=== PATIENT | male | born 1935 | race Caucasian/White ===

== ENCOUNTER → 2019-02-13 | Outpatient (CLI) | payer OTHER ==
[2015-11-03 11:00] VITALS: BP 141/68
[~2019-02-13] MED LIST: ACET325T9 PO; ALLO300T PO; AMLO10TA8 PO; AMOX1TAB58 PO; ASPI325T11 PO; CARV3.12 PO; CLOP75TA PO; DOCU-109 PO; FURO-69 PO; GLIP5TAB10 PO; HYDR-2761 PO; INSU100C4 SQ; INSU100I17 SQ; INSU100I27 SQ; INSU100V13 SQ; LIDO700A4 TP; LISI-130 PO; LOSA-73 PO; MAGN2400 PO; METO50TA6 PO; NIAC1000 PO; OXYC1TAB15 PO; PANT40TA5 PO; PREG150C PO; SIMV20TA PO; SUCR1ORA11 PO; TIZA2CAP3 PO
--- NOTE | 2019-02-13 14:35 | RAD ---
MRI of the lumbar spine without contrast 02/13/2019 CLINICAL HISTORY: Chronic weakness with bilateral leg pain, left greater than right. TECHNIQUE: Unenhanced T1-weighted and T2-weighted sagittal and axial recovery sagittal images of the lumbar spine were obtained. FINDINGS: Minimal S-shaped curvature of the thoracolumbar spine is seen. Degenerative signal changes and loss of height are seen involving all of the disks of the lumbar spine. Degenerative signal changes are seen within the marrow surrounding these discs. The conus medullaris is within normal limits in morphology, position, and signal characteristics. At the L1-2 disc space there is a minimal generalized disc bulge. Degenerative changes are seen involving the facet joints bilaterally. These findings do not result in significant central spinal canal or neural foraminal stenosis. At the L2-3 disc space there is a mild to moderate generalized disc bulge. Degenerative changes are seen involving the facet joints bilaterally. There are small facet joint effusions. There is moderate ligamentum flavum hypertrophy bilaterally. These findings when combined result in moderate central spinal canal stenosis. Mild bilateral neural foraminal stenosis is seen. At the L3-4 disc space there is a mild to moderate generalized disc bulge. The patient appears to be post left hemilaminotomy. The disc bulge is eccentric to the right. Degenerative changes are seen involving the facet joints bilaterally. There is mild to moderate right ligamentum flavum hypertrophy. These findings when combined result in mild right greater than left central spinal canal stenosis. Mild to moderate right greater than left neural foraminal stenosis is seen. At the L4-5 disc space there is a mild to moderate generalized disc bulge. Degenerative changes are seen involving the facet joints bilaterally. There is moderate ligamentum flavum hypertrophy bilaterally. These findings when combined result in moderate central spinal canal stenosis. Mild bilateral neural foraminal stenosis is seen. At the L5-S1 disc space there is a mild to moderate generalized disc bulge. Superimposed on this disc bulge is a focal central disc protrusion. This measures 3 mm in AP diameter. Degenerative changes are seen involving the facet joints bilaterally. These findings when combined do not result in significant central spinal canal stenosis. Moderate left greater than right neural foraminal stenosis is seen. IMPRESSION: 1. The patient appears to be post left hemilaminotomy at L3-4. 2. The changes of degenerative disc disease are seen throughout the lumbar spine. These findings result in moderate central spinal canal stenosis at L2-3 and L4-5 and mild right greater than left central spinal canal stenosis at L3-4. Multilevel neural foraminal stenosis of varying severity is seen as outlined above. Electronically signed by: Jeff Patterson MD (02/13/2019 2:32 PM) [facility]
== END | disposition home or self-care (01) ==
LOC: MRI 14:07
PROVIDERS: ATTEND Internal Medicine
DX: M51.36 Other intervertebral disc degeneration, lumbar region (principal); M51.27 Other intervertebral disc displacement, lumbosacral region; M48.07 Spinal stenosis, lumbosacral region
CPT/HCPCS: 72148

== ENCOUNTER → 2019-02-27 | Outpatient (CLI) | payer OTHER ==
[2015-11-03 11:00] VITALS: BP 141/68
--- NOTE | 2019-02-27 12:25 | RAD ---
Bilateral large renal arterial duplex ultrasound study without comparison for absent pedal pulses. Technique and findings: Real-time grayscale and color and spectral Doppler evaluation of the arteries of the lower extremities is performed. On the right, there is moderate multifocal atherosclerosis involving common femoral and superficial femoral arterial distributions, with no areas of focal velocity elevation. Doppler waveforms are biphasic throughout, save for the dorsalis pedis artery which is monophasic. Overall, velocities are somewhat low, which is nonspecific but could be related to aortoiliac inflow disease. On the left, there is mild multifocal atherosclerosis involving the common femoral, deep femoral, and superficial femoral arterial distributions, once again with biphasic flow. More moderate atherosclerosis is seen in the popliteal artery which is also biphasic. Flow in the posterior tibial, anterior tibial, and dorsalis pedis arteries is monophasic, and the peroneal artery is not visualized. IMPRESSION: 1. Abnormal flow in the runoff vessels, particularly on the left, likely due to hemodynamic significant stenosis in these distributions. 2. No focal stenosis involving the common femoral, superficial femoral, or popliteal arteries of either lower extremity, however velocities are quite low, which could indicate aortoiliac inflow disease. This could be clarified with ABIs and segmental pressures or CTA. Electronically signed by: Saúl Saini MD (02/27/2019 12:23 PM) [id number]
== END | disposition home or self-care (01) ==
LOC: US 07:05
PROVIDERS: ATTEND Internal Medicine
DX: I70.293 Other atherosclerosis of native arteries of extremities, bilateral legs (principal); I10 Essential (primary) hypertension; I25.10 Atherosclerotic heart disease of native coronary artery without angina pectoris; E78.5 Hyperlipidemia, unspecified; E11.40 Type 2 diabetes mellitus with diabetic neuropathy, unspecified; Z90.49 Acquired absence of other specified parts of digestive tract; Z79.899 Other long term (current) drug therapy
CPT/HCPCS: 93925

== ENCOUNTER 2019-06-03 18:07 | Inpatient (IN) | payer OTHER ==
[~2019-06-03] VITALS: Ht 177.8 cm; Wt 93.7 kg
[~2019-06-03 18:07] MED LIST changes: -PANT40TA5 PO; +PANT40TA77 PO
[2019-06-03 18:31] LABS: BASO # 0.1 x10^3/uL (0.0-0.2); BASO % 1 % (0-3); EOS # 0.2 x10^3/uL (0.0-0.7); EOS % 3 % (0-3); HEMATOCRIT 43.4 % (39.0-53.0); HEMOGLOBIN 14.7 g/dL (13.0-17.5); LYMPH # 1.4 x10^3/uL (1.0-4.8); LYMPH % 19 % (24-48); MEAN CORPUSCULAR HEMOGLOBIN 34 pg (25-35); MEAN CORPUSCULAR HGB CONC 34 g/dL (31-37); MEAN CORPUSCULAR VOLUME 101 fL (79-100); MONO # 0.7 x10^3/uL (0.0-1.1); MONO % 9 % (0-9); NEUT # 5.2 x10^3/uL (1.8-7.7); NEUT % 69 % (31-73); PLATELET COUNT 203 x10^3/uL (140-400); RED BLOOD COUNT 4.32 x10^6/uL (4.30-5.70); RED CELL DISTRIBUTION WIDTH 14.6 % (11.5-14.5); WHITE BLOOD COUNT 7.6 x10^3/uL (4.0-11.0)
[2019-06-03 18:39] LABS: PROTHROMBIN TIME PATIENT 13.8 SEC (11.7-14.0)
--- NOTE | 2019-06-03 18:40 | RAD ---
CT brain without contrast. HISTORY: Slurred speech, dysarthria, stroke protocol CT scan of brain was done without contrast. There is no intracranial hemorrhage. There is no mass or shift of the midline. Lateral ventricles are normal in size. Sinuses are clear. There is mild decreased density in the white matter from chronic microvascular changes. There is mild decreased density at the anterior limb of the internal capsule on the left compared to the right which could be chronic white matter change or a small focal lacunar infarct MRI would be of benefit for further evaluation. FOR INTERNAL CODING PURPOSES Critical result: RESULT CODE: (C) PQRS Compliance Statement: One or more of the following individualized dose reduction techniques were utilized for this examination: 1. Automated exposure control 2. Adjustment of the mA and/or kV according to patient size 3. Use of iterative reconstruction technique IMPRESSION: 1. Atrophy and chronic white matter changes. 2. Possible lacunar infarct anterior limb internal capsule on the left. 3. No intracranial hemorrhage or other acute finding. Emergency room physician was called and notified of findings at 6:35 PM PQRS Compliance Statement: One or more of the following individualized dose reduction techniques were utilized for this examination: 1. Automated exposure control 2. Adjustment of the mA and/or kV according to patient size 3. Use of iterative reconstruction technique Electronically signed by: Araivnd Carrillo MD (06/03/2019 6:37 PM) [id number]
[2019-06-03 18:42] LABS: CALCIUM 9.1 mg/dL (8.5-10.1); GFR 71.2; POTASSIUM 3.9 mmol/L (3.5-5.1)
[2019-06-03 18:48] LABS: ALBUMIN/GLOBULIN RATIO 0.9 (1.0-1.7); MAGNESIUM 1.6 mg/dL (1.8-2.4); TOTAL BILIRUBIN 0.4 mg/dL (0.2-1.0); TOTAL PROTEIN 6.5 g/dL (6.4-8.2)
[2019-06-03] MEDS ORDERED: ASPIRIN CHEWABLE 81 MG TABLET. PO ONE (19:00)
[2019-06-03] MEDS ORDERED: IV NORMAL SALINE 1000ML BAG 1,000 ML IV ONE (19:15)
[2019-06-03] MEDS ORDERED: IOHEXOL 350 MG/ML 100 ML VIAL. IV ONE (19:30)
[2019-06-03] MEDS ORDERED: CONTRAST GIVEN. MC PRN (19:30)
[2019-06-03 20:00] LABS: BILIRUBIN,URINE NEGATIVE (NEG); CLARITY,URINE CLEAR; COLOR,URINE YELLOW; NITRITE,URINE POSITIVE (NEG); PH,URINE 6.5; PROTEIN,URINE 100 mg/dL (NEG-TRACE); UROBILINOGEN,URINE 0.2 mg/dL (0.2 mg/dL)
--- NOTE | 2019-06-03 20:10 | RAD ---
Exam: CTA head and neck INDICATION: Slurred speech, right-sided numbness TECHNIQUE: Sequential axial images through the head and neck obtained 75 mL of Omnipaque 350 IV contrast. Sagittal and coronal reformatted images were reconstructed from the axial data and reviewed. Comparisons: CT head 06/03/2019 FINDINGS: CTA NECK: Visualized portions of the thoracic aorta are patent with scattered areas of calcified and noncalcified atheromatous plaque. Right common carotid artery has mild noncalcified abscess chronic plaque in its distal portion without significant stenosis. Approximately 28 percent stenosis at the origin of the right internal carotid artery by NASCET criteria. Otherwise, the cervical segment of the right internal carotid artery is patent without evidence of stenosis, occlusion or aneurysm. Left common carotid artery is patent without evidence of stenosis, occlusion or aneurysm. Calcified and noncalcified atheromatous plaque at the origin of the left internal carotid artery without significant stenosis. The left internal carotid artery cervical segment is patent without evidence of stenosis, occlusion or aneurysm. The origin of the right vertebral artery is unremarkable. Right vertebral artery is dominant. There is dense calcified atherosclerotic plaque at the intradural segment of the right internal carotid artery causing likely mild stenosis. The right vertebral artery is patent to the basilar confluence. The left vertebral artery is diminutive. The left vertebral artery terminates as a cervical branch. Several subcentimeter hypoattenuating nodules are noted with the thyroid. Otherwise, the visualized soft tissues are unremarkable. CTA HEAD: Mild calcified atherosclerotic plaque at the cavernous segment of the right internal carotid artery without significant stenosis. Right MCA is patent. Right ANYA is patent. Mild calcified atherosclerotic plaque at the cavernous segment of the left internal carotid artery without significant stenosis. Left MCA is patent. Left ANYA is patent. Vertebral artery is patent without evidence of stenosis, occlusion or aneurysm. The dispatch associate are patent proximally. IMPRESSION: 1. No major branch vessel occlusion identified. 2. Calcified atherosclerotic plaque at the origin of the right internal carotid artery causing approximately 30 percent stenosis 3. Of the basilar artery is supplied solely by the right vertebral artery which demonstrates mild stenosis along its intradural segment. 4. Mild calcified abscess chronic plaque at the cavernous segments of the internal carotid arteries bilaterally without significant stenosis. Exposure: One or more of the following in the visualized dose reduction techniques were utilized for this examination: 1. Automated exposure control 2. Adjustment of the MA and/or KV according to patient size 3. Use of iterative of reconstructive technique Electronically signed by: Kishor Neil MD (06/03/2019 8:07 PM) [facility]
[2019-06-03 20:11] LABS: AMORPHOUS SEDIMENT,UR PRESENT /HPF; BACTERIA,URINE MANY /HPF (0-FEW); RBC,URINE 0 /HPF (0-2); SQUAMOUS EPITHELIAL CELL,UR OCC /LPF; WBC,URINE >40 /HPF (0-4)
--- NOTE | 2019-06-03 20:20 | PHYS DOC ---
Past Medical History Past Medical History: Diabetes-Type I, Heart Disease, Hypertension Additional Past Medical Histor: MELANOMA Past Surgical History: Colectomy, Other Additional Past Surgical Histo: Melanoma surgery, left shoulder Additional Information: Nonsmoker Alcohol Use: None Drug Use: None Adult General Chief Complaint Chief Complaint: NEURO SYMPTOMS/DEFICITS HPI HPI 84-year-old male presents with report of slurred speech and facial droop to right side which started at 1630. Patient reports associated numbness and tingling to right face and right arm which has since resolved. Denies known trauma. Denies neck pain. Denies fever or chills. Denies chest pain or shortness of breath. Denies history of blood thinner use. Review of Systems Review of Systems Constitutional: Denies fever or chills Eyes: Denies redness or eye pain HENT: Denies nasal congestion or sore throat Respiratory: Denies cough or shortness of breath Cardiovascular: Denies chest pain or palpitations GI: Denies abdominal pain, nausea, or vomiting : Denies dysuria or hematuria Musculoskeletal: Denies back pain or joint pain Integument: Denies rash or skin lesions Neurologic: Denies headache; reports right facial droop, slurred speech, and numbness to right face and right arm. Complete systems were reviewed and found to be within normal limits, except as documented in this note. Current Medications Current Medications Current Medications Medications (Trade) Dose Ordered Sig/Ya Start Time Stop Time Status Last Admin Dose Admin Aspirin (Children'S Aspirin) 162 mg 1X ONCE 06/03/19 19:00 06/03/19 19:01 DC 06/03/19 18:58 162 MG Info (CONTRAST GIVEN -- Rx MONITORING) 1 each PRN DAILY PRN 06/03/19 19:30 06/05/19 19:29 Iohexol (Omnipaque 350 Mg/ml) 75 ml 1X ONCE 06/03/19 19:30 06/03/19 19:31 DC 06/03/19 19:35 75 ML Sodium Chloride 1,000 ml @ 1,000 mls/hr 1X ONCE 06/03/19 19:15 06/03/19 20:14 DC 06/03/19 19:21 1,000 MLS/HR Allergies Allergies Allergies Coded Allergies Type Severity Reaction Last Updated Verified No Known Drug Allergies 10/16/15 No Physical Exam Physical Exam Constitutional: Well developed, well nourished, no acute distress, non-toxic appearance HENT: Normocephalic, atraumatic, oropharynx moist Eyes: PERRL, EOMI, conjunctiva normal, no discharge Neck: Normal range of motion, no tenderness, supple Cardiovascular: Heart rate normal, regular rhythm Lungs & Thorax: Bilateral breath sounds clear to auscultation, no wheezing Abdomen: Soft, no tenderness Skin: Warm, dry, no erythema, no rash Extremities: No tenderness, ROM intact, no edema, strength to all 4 extremities equal 5/5 Neurologic: Alert and oriented X 3, normal motor function, normal sensory f unction, slight dysarthria noted Psychologic: Affect normal, judgement normal Current Patient Data Vital Signs Vital Signs Date Time Temp Pulse Resp B/P (MAP) Pulse Ox O2 Delivery O2 Flow Rate FiO2 06/03/19 20:15 78 98 06/03/19 18:07 97.6 18 181/95 (123) Room Air 97.6 Lab Values Laboratory Tests Test 06/03/19 18:18 06/03/19 18:20 06/03/19 19:50 Glucose (Fingerstick) 115 mg/dL (70-99) H White Blood Count 7.6 x10^3/uL (4.0-11.0) Red Blood Count 4.32 x10^6/uL (4.30-5.70) Hemoglobin 14.7 g/dL (13.0-17.5) Hematocrit 43.4 % (39.0-53.0) Mean Corpuscular Volume 101 fL (79-100) H Mean Corpuscular Hemoglobin 34 pg (25-35) Mean Corpuscular Hemoglobin Concent 34 g/dL (31-37) Red Cell Distribution Width 14.6 % (11.5-14.5) H Platelet Count 203 x10^3/uL (140-400) Neutrophils (%) (Auto) 69 % (31-73) Lymphocytes (%) (Auto) 19 % (24-48) L Monocytes (%) (Auto) 9 % (0-9) Eosinophils (%) (Auto) 3 % (0-3) Basophils (%) (Auto) 1 % (0-3) Neutrophils # (Auto) 5.2 x10^3/uL (1.8-7.7) Lymphocytes # (Auto) 1.4 x10^3/uL (1.0-4.8) Monocytes # (Auto) 0.7 x10^3/uL (0.0-1.1) Eosinophils # (Auto) 0.2 x10^3/uL (0.0-0.7) Basophils # (Auto) 0.1 x10^3/uL (0.0-0.2) Prothrombin Time 13.8 SEC (11.7-14.0) Prothrombin Time INR 1.1 (0.8-1.1) PTT 28 SEC (24-38) Sodium Level 141 mmol/L (136-145) Potassium Level 3.9 mmol/L (3.5-5.1) Chloride Level 106 mmol/L (98-107) Carbon Dioxide Level 25 mmol/L (21-32) Anion Gap 10 (6-14) Blood Urea Nitrogen 22 mg/dL (8-26) Creatinine 1.0 mg/dL (0.7-1.3) Estimated GFR (Cockcroft-Gault) 71.2 BUN/Creatinine Ratio 22 (6-20) H Glucose Level 114 mg/dL (70-99) H Lactic Acid Level 1.9 mmol/L (0.4-2.0) Calcium Level 9.1 mg/dL (8.5-10.1) Magnesium Level 1.6 mg/dL (1.8-2.4) L Total Bilirubin 0.4 mg/dL (0.2-1.0) Aspartate Amino Transferase (AST) 47 U/L (15-37) H Alanine Aminotransferase (ALT) 36 U/L (16-63) Alkaline Phosphatase 138 U/L (46-116) H Creatine Kinase 139 U/L (39-308) Creatine Kinase MB (Mass) 3.7 ng/mL (0.0-3.6) H Creatine Kinase MB Relative Index 2.7 % (0-4) Troponin I Quantitative < 0.017 ng/mL (0.000-0.055) Total Protein 6.5 g/dL (6.4-8.2) Albumin 3.0 g/dL (3.4-5.0) L Albumin/Globulin Ratio 0.9 (1.0-1.7) L Urine Collection Type Void Urine Color Yellow Urine Clarity Clear Urine pH 6.5 Urine Specific [place] 1.015 Urine Protein 100 mg/dL (NEG-TRACE) Urine Glucose (UA) Negative mg/dL (NEG) Urine Ketones (Stick) Negative mg/dL (NEG) Urine Blood Trace (NEG) Urine Nitrite Positive (NEG) Urine Bilirubin Negative (NEG) Urine Urobilinogen Dipstick 0.2 mg/dL (0.2 mg/dL) Urine Leukocyte Esterase Moderate (NEG) Urine RBC 0 /HPF (0-2) Urine WBC >40 /HPF (0-4) Urine Squamous Epithelial Cells Occ /LPF Urine Amorphous Sediment Present /HPF Urine Bacteria Many /HPF (0-FEW) Laboratory Tests 06/03/19 18:20 Laboratory Tests 06/03/19 18:20 EKG EKG @1816 NSR at 77bpm, NO ST elevation Radiology/Procedures Radiology/Procedures PROCEDURE: CT CODE STROKE HEAD WO CT brain without contrast. HISTORY: Slurred speech, dysarthria, stroke protocol CT scan of brain was done without contrast. There is no intracranial hemorrhage. There is no mass or shift of the midline. Lateral ventricles are normal in size. Sinuses are clear. There is mild decreased density in the white matter from chronic microvascular changes. There is mild decreased density at the anterior limb of the internal capsule on the left compared to the right which could be chronic white matter change or a small focal lacunar infarct MRI would be of benefit for further evaluation. FOR INTERNAL CODING PURPOSES Critical result: RESULT CODE: (C) PQRS Compliance Statement: One or more of the following individualized dose reduction techniques were utilized for this examination: 1. Automated exposure control 2. Adjustment of the mA and/or kV according to patient size 3. Use of iterative reconstruction technique IMPRESSION: 1. Atrophy and chronic white matter changes. 2. Possible lacunar infarct anterior limb internal capsule on the left. 3. No intracranial hemorrhage or other acute finding. Emergency room physician was called and notified of findings at 6:35 PM PROCEDURE: PORTABLE CHEST 1V Exam: Frontal view of the chest INDICATION: Right-sided weakness TECHNIQUE: Frontal view of the chest Comparisons: 10/30/2015 FINDINGS: The cardiomediastinal silhouette and pulmonary vessels are within normal limits. The lung and pleural spaces are clear. Orthopedic hardware at the left shoulder. Severe degenerative change of the right shoulder. IMPRESSION: No acute cardiopulmonary process. Electronically signed by: Kishor Neil MD (06/03/2019 10:50 PM) [facility] PROCEDURE: CT ANGIOGRAPHY HEAD AND NECK Exam: CTA head and neck INDICATION: Slurred speech, right-sided numbness TECHNIQUE: Sequential axial images through the head and neck obtained 75 mL of Omnipaque 350 IV contrast. Sagittal and coronal reformatted images were reconstructed from the axial data and reviewed. Comparisons: CT head 06/03/2019 FINDINGS: CTA NECK: Visualized portions of the thoracic aorta are patent with scattered areas of calcified and noncalcified atheromatous plaque. Right common carotid artery has mild noncalcified abscess chronic plaque in its distal portion without significant stenosis. Approximately 28 percent stenosis at the origin of the right internal carotid artery by NASCET criteria. Otherwise, the cervical segment of the right internal carotid artery is patent without evidence of stenosis, occlusion or aneurysm. Left common carotid artery is patent without evidence of stenosis, occlusion or aneurysm. Calcified and noncalcified atheromatous plaque at the origin of the left internal carotid artery without significant stenosis. The left internal carotid artery cervical segment is patent without evidence of stenosis, occlusion or aneurysm. The origin of the right vertebral artery is unremarkable. Right vertebral artery is dominant. There is dense calcified atherosclerotic plaque at the intradural segment of the right internal carotid artery causing likely mild stenosis. The right vertebral artery is patent to the basilar confluence. The left vertebral artery is diminutive. The left vertebral artery terminates as a cervical branch. Several subcentimeter hypoattenuating nodules are noted with the thyroid. Otherwise, the visualized soft tissues are unremarkable. CTA HEAD: Mild calcified atherosclerotic plaque at the cavernous segment of the right internal carotid artery without significant stenosis. Right MCA is patent. Right ANYA is patent. Mild calcified atherosclerotic plaque at the cavernous segment of the left internal carotid artery without significant stenosis. Left MCA is patent. Left ANYA is patent. Vertebral artery is patent without evidence of stenosis, occlusion or aneurysm. The personal lines appraiser are patent proximally. IMPRESSION: 1. No major branch vessel occlusion identified. 2. Calcified atherosclerotic plaque at the origin of the right internal carotid artery causing approximately 30 percent stenosis 3. Of the basilar artery is supplied solely by the right vertebral artery which demonstrates mild stenosis along its intradural segment. 4. Mild calcified abscess chronic plaque at the cavernous segments of the internal carotid arteries bilaterally without significant stenosis. Exposure: One or more of the following in the visualized dose reduction techniques were utilized for this examination: 1. Automated exposure control 2. Adjustment of the MA and/or KV according to patient size 3. Use of iterative of reconstructive technique Electronically signed by: Kishor Neil MD (06/03/2019 8:07 PM) [facility] Course & Med Decision Making Course & Med Decision Making Pertinent Labs and Imaging studies reviewed. (See chart for details) Elderly patient presents with with history of present illness concerning for acute stroke. CODE stroke called upon patient's arrival. NIHSS [address] head without acute hemorrhage. Labs obtained and posted to chart. UA with signs of infection. Empiric antibiotics given. Hypomagnesemia addressed. EKG stable. Discussed case with Dr. Herrmann (neurologist) who requests CTA brain and neck. CTA obtained without signs of focal clot requiring intervention for removal. Patient with interval improvement of symptoms. Patient requiring admission for further evaluation and treatment. Discussed with Dr. Strange (PCP) who is in agreement with admission. Discussed findings and plan with patient and family, who acknowledge understanding and agreement. Dragon Disclaimer Dragon Disclaimer This electronic medical record was generated, in whole or in part, using a voice recognition dictation system. Departure Departure Impression: Primary Impression: TIA (transient ischemic attack) Additional Impressions: UTI (urinary tract infection) Hypomagnesemia Disposition: ADMITTED INPATIENT Admitting Physician: Adalid Strange Condition: GUARDED Referrals: ADALID STRANGE MD (PCP) NIHSS Stroke Scale NIH Stroke Scale: NIH Stroke Scale Response (Comments) Value Level of Consciousness: 0 Alert/Responsive 0 LOC Questions: 0 Answers both correctly 0 LOC Commands: 0 Performs both tasks 0 Best Gaze: 0 Normal 0 Visual: 0 No visual loss 0 Facial Palsy: 0 Normal, symmetrical 0 Motor - Left Arm 0 No drift 0 Motor - Right Arm 0 No drift 0 Motor - Left Leg 0 No drift 0 Motor: Right Leg 0 No drift 0 Limb Ataxia: 0 Absent 0 Sensory: 0 No loss 0 Best Language: 0 Normal 0 Dysathria: 1 Mild to moderate 1 Extinction and Inattention: 0 Normal 0 Total 1 Critical Care Time Critical care time was 30 minutes which includes time at bedside, spent in discussion of patient's care with specialists and/or family members, with interpretation of laboratory and/or radiological studies and is exclusive of procedures. Problem Qualifiers Additional Impressions: UTI (urinary tract infection) Urinary tract infection type: acute cystitis Hematuria presence: without hematuria Qualified Codes: N30.00 - Acute cystitis without hematuria ADALID AGOSTO DO Jun 03, 2019 20:20
[2019-06-03] MEDS ORDERED: ONDANSETRON PF 4 MG/2 ML VIAL. IV PRN (20:30)
[2019-06-03] MEDS ORDERED: DEXTROSE 50% 25 GM / 50ML DISP.SYRIN. IV PRN (20:30)
[2019-06-03] MEDS ORDERED: cefTRIAXone IV Push 1 GM VIAL. IVP ONE (20:45)
[2019-06-03] MEDS ORDERED: MAGNESIUM SULFATE 2GM 50 ML IV ONE (20:45)
[2019-06-03 22:24] VITALS: BP 148/88
--- NOTE | 2019-06-03 22:53 | RAD ---
Exam: Frontal view of the chest INDICATION: Right-sided weakness TECHNIQUE: Frontal view of the chest Comparisons: 10/30/2015 FINDINGS: The cardiomediastinal silhouette and pulmonary vessels are within normal limits. The lung and pleural spaces are clear. Orthopedic hardware at the left shoulder. Severe degenerative change of the right shoulder. IMPRESSION: No acute cardiopulmonary process. Electronically signed by: Kishor Neil MD (06/03/2019 10:50 PM) [facility]
[2019-06-04 03:25] VITALS: BP 117/55
[2019-06-04 03:35] LABS: CHOLESTEROL/HDL RATIO 3.3
--- NOTE | 2019-06-04 05:55 | EKG ---
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
[2019-06-04 07:00] VITALS: BP 146/79
[2019-06-04] MEDS ORDERED: INSULIN LISPRO 300 UNITS/3 ML INSULN.PEN. SQ SCH (08:00)
[2019-06-04] MEDS ORDERED: ACETAMINOPHEN 325 MG TABLET. PO PRN (10:15)
[2019-06-04] MEDS ORDERED: NITROGLYCERIN SUBLINGUAL 0.4 MG BOTTLE OF 25. SL PRN (10:15)
[2019-06-04] MEDS ORDERED: MAGNESIUM HYDROXIDE 2,400 MG/30 ML ORAL.SUSP. PO PRN (10:15)
[2019-06-04] MEDS ORDERED: MAGNESIUM SULFATE 2GM 50 ML IV ONE (11:00)
[2019-06-04 11:45] VITALS: BP 138/89
[2019-06-04] MEDS: CLOPIDOGREL BISULFATE 75 MG TABLET PO SCH (11:49)
[2019-06-04] MEDS: ALLOPURINOL 300 MG TABLET. PO SCH (11:49)
[2019-06-04] MEDS: amLODIPine BESYLATE 5 MG TABLET PO SCH (11:50)
[2019-06-04] MEDS: METOPROLOL TART IMMED RELEASE 25 MG TABLET. PO SCH ×2 (11:50→20:11)
[2019-06-04] MEDS: INSULIN LISPRO 300 UNITS/3 ML INSULN.PEN. SQ SCH ×2 (11:56→17:15)
--- NOTE | 2019-06-04 12:14 | RAD ---
MRI Brain without contrast History: CVA Technique: Multiplanar, multisequential noncontrast MR imaging was performed of the brain. Comparison: June 03, 2019 CT exam, no previous MRI brain exam available Findings: There is some motion degradation. There is small focus of diffusion signal abnormality of the posterior right frontal cortical surface about 0.6 exam although iso to slightly hyperintense on ADC map. There is separate small subtle focus of restricted diffusion of the posterior right dotson radiata about 0.4 cm, hypointense on ADC map. There is no significant restricted diffusion of the left cerebral hemisphere or the posterior fossa. There is no intra-axial mass effect, midline shift, extra-axial fluid collection. There is wbra-jo-xmxodghz supratentorial atrophy somewhat greater of the parietal lobes. There is scattered overall mild T2 and FLAIR hyperintense signal abnormality of the supratentorial parenchyma bilaterally. There are small old lacunar infarcts of the bilateral basal ganglia, bilateral cerebellum, right frontal deep white matter, right centrum semiovale. There is a small focus of encephalomalacia and gliosis of the right occipital cortical surface. There is preservation of the major arterial intracranial flow voids at the skull base. There has been lens surgery bilaterally, somewhat disconjugate gaze. There is deviation of the nasal septum to the right. Paranasal sinuses are overall aerated. Mastoid air cells are aerated. Cerebellar tonsils are normal in location. There is preserved marrow signal clivus. There is no abnormality of pineal gland or pituitary gland. There is tiny focus of old microhemorrhage/hemosiderin deposition of the right cerebellum. Impression: 1. There is a tiny acute infarct of the posterior right dotson radiata. Small focus of diffusion signal change of the posterior right frontal cortical surface is likely due to late subacute or early chronic infarct. There are old lacunar infarcts bilaterally as stated and also small old infarct with cortical involvement of the right occipital lobe. Other scattered mild T2 and FLAIR hyperintense signal abnormality of the supratentorial parenchyma is nonspecific although probably due to chronic microvascular ischemic disease. There is zdwv-te-kkouuews supratentorial atrophy somewhat greater of the parietal lobes. FOR INTERNAL CODING PURPOSES Critical result: Findings discussed with patient's nurse Alberto at 06/04/2019 12:10 PM. RESULT CODE: (C) Electronically signed by: Jamari Moore MD (06/04/2019 12:10 PM) [facility]
--- NOTE | 2019-06-04 13:34 | HP ---
ADMIT DATE: 06/04/2019 LOCATION: Room 654. HISTORY OF PRESENT ILLNESS: The patient is an 84-year-old white male with a history of diabetes mellitus type 2, on insulin, hypertension, hyperlipidemia, coronary artery disease, and chronic gout, who was talking to his haikfsk-if-jcs for greater than 10 minutes and he had some difficulty speaking, he was slurring his speech and had some dysarthria. He also was noted to have some left-sided facial weakness. Apparently the Emergency Room doctor noted some tingling in the extremities, although the patient said he had some tingling in his left calf and that resolved. He sought help at the [facility] Emergency Room, where he underwent a CAT scan of the head without contrast, which showed mild decreased density in the anterior limb of the internal capsule on the left compared to the right. MRI of the brain was recommended for further detail. He had a CAT scan of the head and neck angiogram, which showed mild calcific plaque, involving the cavernous segment of the right internal carotid artery and also showed mild calcific atherosclerotic plaque of the cavernous sinus of the left internal carotid artery without significant stenosis. The right and left middle carotid arteries were patent. The patient was subsequently admitted to the hospital for further evaluation and treatment. This morning he does have left facial weakness, which is noticeable. He also has less fine motor movements in his left hand compared to his right. His speech is fluent. He said he ate his breakfast this morning without any problems swallowing. He is admitted for further evaluation and treatment. His blood pressure has been high and his blood sugar was okay around 117 this morning, even though he did receive his insulin last night. Actually, it was 138 recorded by fingerstick this morning. He is therefore admitted for further evaluation of a suspected cerebrovascular accident. ALLERGIES AND INTOLERANCES: None. MEDICATIONS: Prior to admission include allopurinol 300 mg every day, aspirin 325 mg every day, atorvastatin 10 mg every day, metoprolol tartrate 25 mg b.i.d., nitroglycerin 0.4 mg sublingual p.r.n., Novolin regular insulin 6 units before meals t.i.d. and Tresiba 30 units at bedtime. PAST MEDICAL HISTORY: Significant for diabetes mellitus type 2, on insulin, hypertension, hyperlipidemia, coronary artery disease, chronic gout, myocardial infarction in 2004, benign prostatic hypertrophy, PTCA and stent, which was placed in 2004, benign colon polypectomy. He had a stent to his obtuse marginal branch and he has had a cholecystectomy, tonsillectomy, cataract extraction, ventral abdominal hernia repair, left shoulder arthroplasty, in 1991, he had a perforated colon, following a colonoscopy and had a surgical repair. He had a melanoma excised from his neck in 2008, melanoma excised from his left forearm in 2016. SOCIAL HISTORY: He does not drink alcohol nor does he smoke cigarettes. He ambulates without any assistive device. He is . FAMILY HISTORY: Noncontributory. REVIEW OF SYSTEMS: GENERAL: There has been no fever, chills or sweats in the last 3 days. CARDIOVASCULAR: No chest pain. PULMONARY: No cough or shortness of breath. GASTROINTESTINAL: No constipation. ENDOCRINE: He has diabetes mellitus. NEUROLOGIC: He has the left facial weakness and also had some dysarthria yesterday. The rest of the systems reviewed are negative except as stated in the history of present illness. PHYSICAL EXAMINATION: VITAL SIGNS: Temperature is 98 degrees, apical pulse regular at 78, respiratory rate is 18, blood pressure 146/79, oxygen saturation 96%. Looking at his blood pressure, the highest reading was 181/95 at 6:07 p.m. last night. HEENT: Eyes: Gaze is conjugate. Extraocular muscles are intact. Mouth: Tongue is midline without yeast. NECK: No cervical lymphadenopathy or thyroid enlargement. HEART: Reveals an S1, S2. There is no S3 or murmur. LUNGS: Clear. ABDOMEN: Obese and soft with no hepatosplenomegaly, masses or tenderness. He has got abdominal scars. EXTREMITIES: Lower extremities without edema. Both feet are warm. NEUROLOGIC: His speech is fluent. He has got some left-sided facial weakness noted, especially by the corner of his left side of his mouth. His vydcdi-xg-hand testing appeared to be normal, minimally off on the left side. He is right-handed. He has got 5/5 bilateral hand recruitment consultant, 5/5 biceps. Deltoids are 5/5 bilaterally. Fine motor movement of his fingers was normal in the right and abnormal on the left, which he attributed to arthritis. Lower extremities, he had no focal weakness to the legs. Able to dorsi and plantarflex both feet, bend his knees and raise his legs up in the air. He is able to do foot tapping a little bit better on the right than the left. SKIN: No rashes. LABORATORY DATA: White count is 7.6, hemoglobin 14.7, MCV of 101 with a platelet count of 220,000, 69 polys and 19 lymphocytes. Fasting blood sugar is 138. His INR was 1.1 with a PTT of 28. Urinalysis showed greater than 40 white blood cells. Chest x-ray showed normal sinus rhythm, left axis deviation, left anterior hemiblock. CAT scan of the head and neck is as stated above and the CAT scan of the brain is as stated above and a chest x-ray showed no acute abnormality. Lungs are clear. ASSESSMENT: 1. Suspected acute lacunar cerebrovascular accident with dysarthria and some left facial weakness and also some decreased fine motor movement of his left hand. He may have some decreased heel tapping in the left foot, also on exam. 2. Diabetes mellitus type 2, on insulin. 3. Hypertension. 4. Hyperlipidemia. 5. Coronary artery disease. 6. Hypomagnesemia. PLAN: At this time is to consult Dr. Herrmann for Neurology. We will order physical, occupational and speech therapy. Speech therapy will evaluate swallow and speech. He will order an MRI of the brain stat. We will resume his home medications, although we will use NovoLog insulin instead of his Novolin regular insulin and use Lantus insulin at a lower dose 20 units at bedtime instead of 30 units of Tresiba at home. His blood sugar was so good that he did not receive any insulin last night. We will continue with his other home medications except we will discontinue aspirin and start him on Plavix 75 mg every day. He also has hypomagnesemia and we will give him 2 grams of magnesium sulfate IV and we will check his magnesium level tomorrow. Monitor his blood sugars and place him on a diabetic diet. Also start him on amlodipine 2.5 mg everyday as his blood pressure is elevated. We will monitor him for any further neurologic symptoms. We will continue with telemetry. GUSTAVO HOLLOWAY MD DR: BARRETT/masood JOB#: [id number] / [id number]
--- NOTE | 2019-06-04 14:33 | NUR ---
SW following pt for dc planning. Chart reviewed and pt lives at home with spouse. PT/OT/ST ordered and PT/OT pending. SW will await for PT/OT recommendation to assess skilled needs. Will continue to follow.
[2019-06-04 15:48] VITALS: BP 118/64
--- NOTE | 2019-06-04 16:35 | CARD ---
MR#: [id number] Date of Study: 06/04/2019 Ordering Physician: GUSTAVO HOLLOWAY, Referring Physician: GUSTAVO HOLLOWAY, Tech: Brittany Geronimo APPROVED REPORT EXAM: Two-dimensional and M-mode echocardiogram with Doppler and color Doppler. Other Information Quality : AverageHR: 58bpm INDICATION CVA/TIA CAD 2D DIMENSIONS RVDd3.1 (2.9-3.5cm)Left Atrium(2D)3.8 (1.6-4.0cm) IVSd1.5 (0.7-1.1cm)Aortic Root(2D)3.1 (2.0-3.7cm) LVDd5.0 (3.9-5.9cm)LVOT Diameter2.0 (1.8-2.4cm) PWd1.4 (0.7-1.1cm)LVDs3.7 (2.5-4.0cm) FS (%) 27.3 %SV63.1 ml LVEF(%)52.8 (>50%) Aortic Valve AoV Peak Dino.131.4cm/sAoV VTI28.0cm AO Peak GR.6.9mmHgLVOT Peak Dino.112.7cm/s LVOT VTI 28.02cmAO Mean GR.4mmHg MIKAYLA (VMAX)2.59cn3LAL (VTI)3.19cm2 AI P 1/2 [id number] Mitral Valve MV E Jhckcaiw40.8cm/sMV DECEL [id number] MV A Vsfhoxmm52.2cm/sMV RLW39yp E/A Ratio0.6MVA (PHT)2.23cm2 TDI E/Lateral E'6.6E/Medial E'9.1 Pulmonary Valve PV Peak Lseugorr90.7cm/sPV Peak Grad.3mmHg Tricuspid Valve TR P. Vlconscl020it/sRAP [id number] TR Peak Gr.66oqNiBVAF63ffFq Pulmonary Vein S1 Jqkcvwen56.3cm/sD2 Ymlmluhe48.6cm/s PVa [id number] LEFT VENTRICLE The left ventricle is normal size. There is moderate concentric left ventricular hypertrophy. The lef t ventricular systolic function is normal. The Ejection Fraction is 55-60%. There is normal LV segmen dalia wall motion. Transmitral Doppler flow pattern is Grade I-abnormal relaxation pattern. RIGHT VENTRICLE The right ventricle is borderline dilated. There is normal right ventricular wall thickness. The righ t ventricular systolic function is normal. ATRIA The left atrium size is normal. The right atrium size is normal. Interatrial septal thickening is not ed. AORTIC VALVE The aortic valve is thickened but opens well. Doppler and Color Flow revealed mild aortic regurgitati on. There is no significant aortic valvular stenosis. MITRAL VALVE The mitral valve is thickened but opens well. There is no evidence of mitral valve prolapse. There is no mitral valve stenosis. Doppler and Color-flow revealed trace to mild mitral regurgitation. TRICUSPID VALVE The tricuspid valve is normal in structure and function. Doppler and Color Flow revealed trace tricus pid regurgitation with an estimated PAP of 25 mmHg. There is no tricuspid valve stenosis. PULMONIC VALVE The pulmonic valve is not well visualized. Doppler and Color Flow revealed no pulmonic valvular regur gitation. GREAT VESSELS The aortic root is normal in size. The IVC was not visualized. PERICARDIAL EFFUSION There is no evidence of significant pericardial effusion. Critical Notification Critical Value: No <Conclusion> The left ventricular systolic function is normal. The Ejection Fraction is 55-60%. There is normal LV segmental wall motion. Transmitral Doppler flow pattern is Grade I-abnormal relaxation pattern. Mild aortic regurgitation. Trace to mild mitral regurgitation. Trace tricuspid regurgitation with an estimated PAP of 25 mmHg. There is no evidence of significant pericardial effusion. Signed by : Milo Espana, Electronically Approved : 06/04/2019 16:34:56
--- NOTE | 2019-06-04 18:34 | PDOC2 ---
NEUROLOGY CONSULT Date of Admission Date of Admission DATE: 06/04/19 TIME: 18:11 Reason for Consult Reason for Consult: IMPRESSION: Acte tiny acute infarct of the posterior right dotson radiata. Subacute or early chronic infarct in the posterior right frontal cortical surface. Old lacunar infarcts bilaterally. Old small infarct with cortical involvement of the right occipital lobe. Atherosclerotic disease in cerebral vasculature. The basilar artery is supplied solely by the right vertebral artery. Slurred speech for < 1 hour on 06/03/19. DM. HTN. HLD. Over weight. RECOMMENDATIONS/PLAN: Plavix 75 mg daily. Continue Lipitor HS. Treat medical diseases. Lab: see orders. CT, CTA, MRI, Echo: refer to official reports. HISTORY OF THE PRESENT ILLNESS: This is an 84-year-old male patient with above medical diseases developed symptoms of slurred speech on 06/03/19. His called his son who is a physician in other state suggest that he go to ER of local hospital, so he came to the ER of [facility]. His symptoms of slurred speech was resolved after arrival in the ER. He stated no numbness or weakness or other focalized neurological deficits. His NIH score was 0. His CTA showed no acute finding. He was not a candidate of TPA. He was admitted for further evaluation. PAST MEDICAL HISTORY: Diabetes mellitus type 2, on insulin, hypertension, hyperlipidemia, coronary artery disease, chronic gout, myocardial infarction in 2004, benign prostatic hypertrophy. PAST SURGERY HISTORY: PTCA and stent placed in 2004, benign colon polypectomy. Stent to his obtuse marginal branch and he has had a cholecystectomy, tonsillectomy, cataract extraction, ventral abdominal hernia repair, left shoulder arthroplasty, in 1991, he had a perforated colon, following a colonoscopy and had a surgical repair. Melanoma excised from his neck in 2008, melanoma excised from his left forearm in 2016. SOCIAL HISTORY: He does not drink alcohol nor does he smoke cigarettes. He ambulates without any assistive device. He is . FAMILY HISTORY: Noncontributory. ALLERGY: NKDA MEDICATIONS: Refer to MAR REVIEW OF SYSTEMS: Constitutional: Over weight. Head: No traumatic brain or head injury. Skin: No edema, or rash. Ear: No infection. Eyes: No vision loss or color blindness. Nose: No bleeding or purulent discharges. Hearing: No hearing decrease. Neck: No injury. Cardiac: CAD, TN, HTN, HLD. Pulmonary: No COPD. GI: No GI ulcer, GI bleeding. Urinary/genital: BPH. Endocrinologic: Diabetes Mellitus, obesity. Skeletomuscular: No muscular atrophy, deformity. Neurological: see HP. Psychiatric: Denies drug use/abuse. Otherwise, not [id number] review of systems. PHYSICAL EXAMINATION: General appearance is in subacute distress. HEENT: Normocephalic and nontraumatic. Eyes, nose, ears, and throat are unremarkable. Neck is supple. No lymphadenopathy. No crepitus. Cardiovascular: S1, S2, regular rate and rhythm. Pulmonary: Clear to auscultation bilaterally. Abdomen: Bowel sounds are positive. Abdomen is soft, nontender, and nondistended. Extremities: No rash, lesions, or edema. No restriction of range of motion NEUROLOGICAL EXAMINATION: Alert Oriented to time, place and person. PERRL. EOMI. CN: no focal findings. Muscle tone: within normal. Muscle strength: 5 DTR: 2 Plantar reflex: Flexor response bilaterally Gait: not examined in bed. Sensory exam: no abnormal findings. No cerebellar signs elicited. F-T-N test fine. Current Medications Current Medications Current Medications Aspirin (Children'S Aspirin) 162 mg 1X ONCE PO Last administered on 06/03/19at 18:58; Start 06/03/19 at 19:00; Stop 06/03/19 at 19:01; Status DC Sodium Chloride 1,000 ml @ 1,000 mls/hr 1X ONCE IV Last administered on 06/03/19at 19:21; Start 06/03/19 at 19:15; Stop 06/03/19 at 20:14; Status DC Iohexol (Omnipaque 350 Mg/ml) 75 ml 1X ONCE IV Last administered on 06/03/19at 19:35; Start 06/03/19 at 19:30; Stop 06/03/19 at 19:31; Status DC Info (CONTRAST GIVEN -- Rx MONITORING) 1 each PRN DAILY PRN MC SEE COMMENTS; Start 06/03/19 at 19:30; Stop 06/05/19 at 19:29 Magnesium Sulfate 50 ml @ 25 mls/hr 1X ONCE IV Last administered on 06/03/19at 20:47; Start 06/03/19 at 20:45; Stop 06/03/19 at 22:44; Status DC Ceftriaxone Sodium (Rocephin) 1 gm 1X ONCE IVP Last administered on 06/03/19at 20:40; Start 06/03/19 at 20:45; Stop 06/03/19 at 20:46; Status DC Ondansetron HCl (Zofran) 4 mg PRN Q8HRS PRN IV NAUSEA/VOMITING; Start 06/03/19 at 20:30; Stop 06/04/19 at 20:29 Insulin Human Lispro (HumaLOG) 0-5 UNITS TIDWMEALS SQ ; Start 06/04/19 at 08:00; Stop 06/04/19 at 10:16; Status DC Dextrose (Dextrose 50%-Water Syringe) 12.5 gm PRN Q15MIN PRN IV SEE COMMENTS; Start 06/03/19 at 20:30 Magnesium Sulfate 50 ml @ 25 mls/hr 1X ONCE IV Last administered on 06/04/19at 11:51; Start 06/04/19 at 11:00; Stop 06/04/19 at 12:59; Status DC Clopidogrel Bisulfate (Plavix) 75 mg DAILYWBKFT PO Last administered on 06/04/19at 11:49; Start 06/04/19 at 11:00 Atorvastatin Calcium (Lipitor) 10 mg QHS PO ; Start 06/04/19 at 21:00 Metoprolol Tartrate (Lopressor) 25 mg BID PO Last administered on 06/04/19at 11:50; Start 06/04/19 at 11:00 Nitroglycerin (Nitrostat) 0.4 mg PRN Q5MIN PRN SL CHEST PAIN; Start 06/04/19 at 10:15 Insulin Human Lispro (HumaLOG) 6 units TIDAC SQ Last administered on 06/04/19at 17:15; Start 06/04/19 at 11:30 Insulin Glargine (Lantus) 20 units QHS SQ ; Start 06/04/19 at 21:00 Acetaminophen (Tylenol) 650 mg PRN Q6HRS PRN PO MILD PAIN / TEMP; Start 06/04/19 at 10:15 Magnesium Hydroxide (Milk Of Magnesia) 2,400 mg PRN DAILY PRN PO CONSTIPATION; Start 06/04/19 at 10:15 Amlodipine Besylate (Norvasc) 2.5 mg DAILY PO Last administered on 06/04/19at 11:50; Start 06/04/19 at 11:00 Allopurinol (Zyloprim) 300 mg DAILY PO Last administered on 06/04/19at 11:49; Start 06/04/19 at 11:00 Active Scripts Active Sucralfate 1 Gm/10 Ml Oral.susp 1 Gm PO QIDACHS Pantoprazole Sodium 40 Mg Tablet.dr 40 Mg PO DAILYAC Levemir Flextouch (Insulin Detemir) 100 Unit/1 Ml Insuln.pen 18 Units SQ QHS Novolog Flexpen (Insulin Aspart) 100 Unit/1 Ml Insuln.pen 6 Units SQ TIDAC Hydrocodone-Apap 5-325 (Hydrocodone Bit/Acetaminophen) 1 Each Tablet 1 Tab PO PRN Q4HRS PRN Reported Metoprolol Tartrate 50 Mg Tablet 1 Tab PO BID Allopurinol 300 Mg Tablet 1 Tab PO DAILY Losartan Potassium 50 Mg Tablet 50 Mg PO DAILY Niaspan (Niacin) 1,000 Mg Tab.er.24h 1 Tab PO QHS Allergies Allergies: Allergies Coded Allergies Type Severity Reaction Last Updated Verified No Known Drug Allergies 10/16/15 No ROS Review of System The patient denies any associated fevers, chills, headache, ear pain, rhinorrhea, sore throat, stiff neck, productive cough, chest pain, shortness of breath, back or flank pain, abdominal pain, nausea, vomiting, diarrhea, constipation, dysuria, rash, numbness, weakness, tingling, incontinence, difficulty ambulating, or diaphoresis. Physical Exam Physical Exam General: Well developed, well nourished, no acute distress, well appearing HEENT: Pupils equally round and reactive to light, EOMI, no discharge, normal conjunctiva Neck: Supple, no nuchal rigidity, no JVD, trachea midline, no tenderness Cardiac: RRR, no murmurs, no gallops, no rubs Chest/Lungs: CTAB, no wheeze, no rhonchi, no crackles Abdomen: soft, non-distended, no guarding, no peritoneal signs, non-tender Back: No tenderness Extremities: no edema, pulses intact, non-tender,capillary refill <3 sec bilateral upper and lower extremities, Neuro: Alert and oriented x 4, no focal deficits, normal speech Vitals Vitals: Vital Signs Date Time Temp Pulse Resp B/P (MAP) Pulse Ox O2 Delivery O2 Flow Rate FiO2 7/30/19 15:48 97.6 54 15 118/64 (82) 96 Room Air 97.6 Labs Labs Laboratory Tests Test 06/03/19 18:18 06/03/19 18:20 06/03/19 19:50 06/03/19 22:45 Glucose (Fingerstick) 115 mg/dL (70-99) 188 mg/dL (70-99) White Blood Count 7.6 x10^3/uL (4.0-11.0) Red Blood Count 4.32 x10^6/uL (4.30-5.70) Hemoglobin 14.7 g/dL (13.0-17.5) Hematocrit 43.4 % (39.0-53.0) Mean Corpuscular Volume 101 fL (79-100) Mean Corpuscular Hemoglobin 34 pg (25-35) Mean Corpuscular Hemoglobin Concent 34 g/dL (31-37) Red Cell Distribution Width 14.6 % (11.5-14.5) Platelet Count 203 x10^3/uL (140-400) Neutrophils (%) (Auto) 69 % (31-73) Lymphocytes (%) (Auto) 19 % (24-48) Monocytes (%) (Auto) 9 % (0-9) Eosinophils (%) (Auto) 3 % (0-3) Basophils (%) (Auto) 1 % (0-3) Neutrophils # (Auto) 5.2 x10^3/uL (1.8-7.7) Lymphocytes # (Auto) 1.4 x10^3/uL (1.0-4.8) Monocytes # (Auto) 0.7 x10^3/uL (0.0-1.1) Eosinophils # (Auto) 0.2 x10^3/uL (0.0-0.7) Basophils # (Auto) 0.1 x10^3/uL (0.0-0.2) Prothrombin Time 13.8 SEC (11.7-14.0) Prothromb Time International Ratio 1.1 (0.8-1.1) Activated Partial Thromboplast Time 28 SEC (24-38) Sodium Level 141 mmol/L (136-145) Potassium Level 3.9 mmol/L (3.5-5.1) Chloride Level 106 mmol/L (98-107) Carbon Dioxide Level 25 mmol/L (21-32) Anion Gap 10 (6-14) Blood Urea Nitrogen 22 mg/dL (8-26) Creatinine 1.0 mg/dL (0.7-1.3) Estimated GFR (Cockcroft-Gault) 71.2 BUN/Creatinine Ratio 22 (6-20) Glucose Level 114 mg/dL (70-99) Lactic Acid Level 1.9 mmol/L (0.4-2.0) Calcium Level 9.1 mg/dL (8.5-10.1) Magnesium Level 1.6 mg/dL (1.8-2.4) Total Bilirubin 0.4 mg/dL (0.2-1.0) Aspartate Amino Transf (AST/SGOT) 47 U/L (15-37) Alanine Aminotransferase (ALT/SGPT) 36 U/L (16-63) Alkaline Phosphatase 138 U/L (46-116) Creatine Kinase 139 U/L (39-308) Creatine Kinase MB (Mass) 3.7 ng/mL (0.0-3.6) Creatine Kinase MB Relative Index 2.7 % (0-4) Troponin I Quantitative < 0.017 ng/mL (0.000-0.055) Total Protein 6.5 g/dL (6.4-8.2) Albumin 3.0 g/dL (3.4-5.0) Albumin/Globulin Ratio 0.9 (1.0-1.7) Urine Collection Type Void Urine Color Yellow Urine Clarity Clear Urine pH 6.5 Urine Specific [place] 1.015 Urine Protein 100 mg/dL (NEG-TRACE) Urine Glucose (UA) Negative mg/dL (NEG) Urine Ketones (Stick) Negative mg/dL (NEG) Urine Blood Trace (NEG) Urine Nitrite Positive (NEG) Urine Bilirubin Negative (NEG) Urine Urobilinogen Dipstick 0.2 mg/dL (0.2 mg/dL) Urine Leukocyte Esterase Moderate (NEG) Urine RBC 0 /HPF (0-2) Urine WBC >40 /HPF (0-4) Urine Squamous Epithelial Cells Occ /LPF Urine Amorphous Sediment Present /HPF Urine Bacteria Many /HPF (0-FEW) Test 06/03/19 23:40 06/04/19 02:30 06/04/19 07:21 06/04/19 11:51 Troponin I Quantitative 0.020 ng/mL (0.000-0.055) < 0.017 ng/mL (0.000-0.055) Triglycerides Level 138 mg/dL (0-150) Cholesterol Level 114 mg/dL (0-200) LDL Cholesterol, Calculated 51 mg/dL (0-100) VLDL Cholesterol, Calculated 28 mg/dL (0-40) Non-HDL Cholesterol Calculated 79 mg/dL (0-129) HDL Cholesterol 35 mg/dL (40-60) Cholesterol/HDL Ratio 3.3 Glucose (Fingerstick) 138 mg/dL (70-99) 176 mg/dL (70-99) Test 06/04/19 16:50 Glucose (Fingerstick) 141 mg/dL (70-99) Laboratory Tests Test 06/03/19 18:18 06/03/19 18:20 06/03/19 19:50 06/03/19 22:45 Glucose (Fingerstick) 115 mg/dL (70-99) 188 mg/dL (70-99) White Blood Count 7.6 x10^3/uL (4.0-11.0) Red Blood Count 4.32 x10^6/uL (4.30-5.70) Hemoglobin 14.7 g/dL (13.0-17.5) Hematocrit 43.4 % (39.0-53.0) Mean Corpuscular Volume 101 fL (79-100) Mean Corpuscular Hemoglobin 34 pg (25-35) Mean Corpuscular Hemoglobin Concent 34 g/dL (31-37) Red Cell Distribution Width 14.6 % (11.5-14.5) Platelet Count 203 x10^3/uL (140-400) Neutrophils (%) (Auto) 69 % (31-73) Lymphocytes (%) (Auto) 19 % (24-48) Monocytes (%) (Auto) 9 % (0-9) Eosinophils (%) (Auto) 3 % (0-3) Basophils (%) (Auto) 1 % (0-3) Neutrophils # (Auto) 5.2 x10^3/uL (1.8-7.7) Lymphocytes # (Auto) 1.4 x10^3/uL (1.0-4.8) Monocytes # (Auto) 0.7 x10^3/uL (0.0-1.1) Eosinophils # (Auto) 0.2 x10^3/uL (0.0-0.7) Basophils # (Auto) 0.1 x10^3/uL (0.0-0.2) Prothrombin Time 13.8 SEC (11.7-14.0) Prothromb Time International Ratio 1.1 (0.8-1.1) Activated Partial Thromboplast Time 28 SEC (24-38) Sodium Level 141 mmol/L (136-145) Potassium Level 3.9 mmol/L (3.5-5.1) Chloride Level 106 mmol/L (98-107) Carbon Dioxide Level 25 mmol/L (21-32) Anion Gap 10 (6-14) Blood Urea Nitrogen 22 mg/dL (8-26) Creatinine 1.0 mg/dL (0.7-1.3) Estimated GFR (Cockcroft-Gault) 71.2 BUN/Creatinine Ratio 22 (6-20) Glucose Level 114 mg/dL (70-99) Lactic Acid Level 1.9 mmol/L (0.4-2.0) Calcium Level 9.1 mg/dL (8.5-10.1) Magnesium Level 1.6 mg/dL (1.8-2.4) Total Bilirubin 0.4 mg/dL (0.2-1.0) Aspartate Amino Transf (AST/SGOT) 47 U/L (15-37) Alanine Aminotransferase (ALT/SGPT) 36 U/L (16-63) Alkaline Phosphatase 138 U/L (46-116) Creatine Kinase 139 U/L (39-308) Creatine Kinase MB (Mass) 3.7 ng/mL (0.0-3.6) Creatine Kinase MB Relative Index 2.7 % (0-4) Troponin I Quantitative < 0.017 ng/mL (0.000-0.055) Total Protein 6.5 g/dL (6.4-8.2) Albumin 3.0 g/dL (3.4-5.0) Albumin/Globulin Ratio 0.9 (1.0-1.7) Urine Collection Type Void Urine Color Yellow Urine Clarity Clear Urine pH 6.5 Urine Specific [place] 1.015 Urine Protein 100 mg/dL (NEG-TRACE) Urine Glucose (UA) Negative mg/dL (NEG) Urine Ketones (Stick) Negative mg/dL (NEG) Urine Blood Trace (NEG) Urine Nitrite Positive (NEG) Urine Bilirubin Negative (NEG) Urine Urobilinogen Dipstick 0.2 mg/dL (0.2 mg/dL) Urine Leukocyte Esterase Moderate (NEG) Urine RBC 0 /HPF (0-2) Urine WBC >40 /HPF (0-4) Urine Squamous Epithelial Cells Occ /LPF Urine Amorphous Sediment Present /HPF Urine Bacteria Many /HPF (0-FEW) Test 06/03/19 23:40 06/04/19 02:30 06/04/19 07:21 06/04/19 11:51 Troponin I Quantitative 0.020 ng/mL (0.000-0.055) < 0.017 ng/mL (0.000-0.055) Triglycerides Level 138 mg/dL (0-150) Cholesterol Level 114 mg/dL (0-200) LDL Cholesterol, Calculated 51 mg/dL (0-100) VLDL Cholesterol, Calculated 28 mg/dL (0-40) Non-HDL Cholesterol Calculated 79 mg/dL (0-129) HDL Cholesterol 35 mg/dL (40-60) Cholesterol/HDL Ratio 3.3 Glucose (Fingerstick) 138 mg/dL (70-99) 176 mg/dL (70-99) Test 06/04/19 16:50 Glucose (Fingerstick) 141 mg/dL (70-99) WILBERT DIOP MD Jun 04, 2019 18:34
[2019-06-04 19:38] VITALS: BP 147/75
[2019-06-04] MEDS: CYANOCOBALAMIN (VITAMIN B-12) 1,000 MCG/ML VIAL IM SCH (20:53)
[2019-06-04] MEDS ORDERED: ATORVASTATIN CALCIUM 10 MG TABLET. PO SCH (21:00)
[2019-06-04] MEDS ORDERED: INSULIN GLARGINE 300 UNITS/3 ML INSULN.PEN. SQ SCH (21:00)
[2019-06-04 22:51] VITALS: BP 126/70
[2019-06-05 02:55] VITALS: BP 117/60
[2019-06-05 05:00] LABS: CALCIUM 8.8 mg/dL (8.5-10.1); CREATININE 1.1 mg/dL (0.7-1.3); GFR 63.8; MAGNESIUM 1.8 mg/dL (1.8-2.4); POTASSIUM 4.6 mmol/L (3.5-5.1)
[2019-06-05 07:46] VITALS: BP 143/68
[2019-06-05] MEDS: CLOPIDOGREL BISULFATE 75 MG TABLET PO SCH (08:19)
[2019-06-05] MEDS: ALLOPURINOL 300 MG TABLET. PO SCH (08:19)
[2019-06-05] MEDS: METOPROLOL TART IMMED RELEASE 25 MG TABLET. PO SCH (08:20)
[2019-06-05] MEDS: amLODIPine BESYLATE 5 MG TABLET PO SCH (08:22)
[2019-06-05] MEDS: CYANOCOBALAMIN (VITAMIN B-12) 1,000 MCG/ML VIAL IM SCH (08:25)
[2019-06-05] MEDS: INSULIN LISPRO 300 UNITS/3 ML INSULN.PEN. SQ SCH ×2 (08:25→12:15)
--- NOTE | 2019-06-05 10:14 | PDOC ---
PROGRESS NOTES Subjective Subjective brain MRI shows acute CVA right dotson radiata and several old lacunar infarcts. feels okay. ambulated well today. his left hand fine motor movements is better today and still has left facial weakness. passed swallow evaluation . echo okay with a preserved LVEF. eating well. bp better. blood sugars okay Objective Objective Vital Signs Date Time Temp Pulse Resp B/P (MAP) Pulse Ox O2 Delivery O2 Flow Rate FiO2 06/05/19 08:22 54 143/68 06/05/19 08:00 Room Air 06/05/19 07:46 97.5 14 96 97.5 Intake and Output 06/05/19 06:59 Intake Total 960 ml Balance 960 ml Intake Oral 960 ml # Voids 4 Physical Exam Abdomen: Soft Heart: Regular rate Extremities: No edema General: Alert HEENT: Atraumatic Lungs: Clear to auscultation Neuro: Normal speech, Other (left facial weakness . left hand fine motor movement better in fingers) Psych/Mental Status: Mental status NL Skin: No rashes Assessment Assessment 1. acute right dotson radiata CVA with left facial weakness and left fine motor movement deficits left hand that is better today. dysarthria resolved 2. Diabetes mellitus type 2, on insulin. 3. Hypertension. 4. Hyperlipidemia. 5. Coronary artery disease. 6. Hypomagnesemia. resolved Plan Plan of Care has not seen PT and OT yet and will be evaluated today dismiss to home if okay with PT and OT continue plavix continue amlodipine and other bp meds continue diabetes meds Comment Review of Relevant I have reviewed the following items landy (where applicable) has been applied. Labs Laboratory Tests Test 06/03/19 18:18 06/03/19 18:20 06/03/19 19:50 06/03/19 22:45 Glucose (Fingerstick) 115 mg/dL (70-99) 188 mg/dL (70-99) White Blood Count 7.6 x10^3/uL (4.0-11.0) Red Blood Count 4.32 x10^6/uL (4.30-5.70) Hemoglobin 14.7 g/dL (13.0-17.5) Hematocrit 43.4 % (39.0-53.0) Mean Corpuscular Volume 101 fL (79-100) Mean Corpuscular Hemoglobin 34 pg (25-35) Mean Corpuscular Hemoglobin Concent 34 g/dL (31-37) Red Cell Distribution Width 14.6 % (11.5-14.5) Platelet Count 203 x10^3/uL (140-400) Neutrophils (%) (Auto) 69 % (31-73) Lymphocytes (%) (Auto) 19 % (24-48) Monocytes (%) (Auto) 9 % (0-9) Eosinophils (%) (Auto) 3 % (0-3) Basophils (%) (Auto) 1 % (0-3) Neutrophils # (Auto) 5.2 x10^3/uL (1.8-7.7) Lymphocytes # (Auto) 1.4 x10^3/uL (1.0-4.8) Monocytes # (Auto) 0.7 x10^3/uL (0.0-1.1) Eosinophils # (Auto) 0.2 x10^3/uL (0.0-0.7) Basophils # (Auto) 0.1 x10^3/uL (0.0-0.2) Prothrombin Time 13.8 SEC (11.7-14.0) Prothromb Time International Ratio 1.1 (0.8-1.1) Activated Partial Thromboplast Time 28 SEC (24-38) Sodium Level 141 mmol/L (136-145) Potassium Level 3.9 mmol/L (3.5-5.1) Chloride Level 106 mmol/L (98-107) Carbon Dioxide Level 25 mmol/L (21-32) Anion Gap 10 (6-14) Blood Urea Nitrogen 22 mg/dL (8-26) Creatinine 1.0 mg/dL (0.7-1.3) Estimated GFR (Cockcroft-Gault) 71.2 BUN/Creatinine Ratio 22 (6-20) Glucose Level 114 mg/dL (70-99) Lactic Acid Level 1.9 mmol/L (0.4-2.0) Calcium Level 9.1 mg/dL (8.5-10.1) Magnesium Level 1.6 mg/dL (1.8-2.4) Total Bilirubin 0.4 mg/dL (0.2-1.0) Aspartate Amino Transf (AST/SGOT) 47 U/L (15-37) Alanine Aminotransferase (ALT/SGPT) 36 U/L (16-63) Alkaline Phosphatase 138 U/L (46-116) Creatine Kinase 139 U/L (39-308) Creatine Kinase MB (Mass) 3.7 ng/mL (0.0-3.6) Creatine Kinase MB Relative Index 2.7 % (0-4) Troponin I Quantitative < 0.017 ng/mL (0.000-0.055) Total Protein 6.5 g/dL (6.4-8.2) Albumin 3.0 g/dL (3.4-5.0) Albumin/Globulin Ratio 0.9 (1.0-1.7) Urine Collection Type Void Urine Color Yellow Urine Clarity Clear Urine pH 6.5 Urine Specific [place] 1.015 Urine Protein 100 mg/dL (NEG-TRACE) Urine Glucose (UA) Negative mg/dL (NEG) Urine Ketones (Stick) Negative mg/dL (NEG) Urine Blood Trace (NEG) Urine Nitrite Positive (NEG) Urine Bilirubin Negative (NEG) Urine Urobilinogen Dipstick 0.2 mg/dL (0.2 mg/dL) Urine Leukocyte Esterase Moderate (NEG) Urine RBC 0 /HPF (0-2) Urine WBC >40 /HPF (0-4) Urine Squamous Epithelial Cells Occ /LPF Urine Amorphous Sediment Present /HPF Urine Bacteria Many /HPF (0-FEW) Test 06/03/19 23:40 06/04/19 02:30 06/04/19 07:21 06/04/19 11:51 Troponin I Quantitative 0.020 ng/mL (0.000-0.055) < 0.017 ng/mL (0.000-0.055) Triglycerides Level 138 mg/dL (0-150) Cholesterol Level 114 mg/dL (0-200) LDL Cholesterol, Calculated 51 mg/dL (0-100) VLDL Cholesterol, Calculated 28 mg/dL (0-40) Non-HDL Cholesterol Calculated 79 mg/dL (0-129) HDL Cholesterol 35 mg/dL (40-60) Cholesterol/HDL Ratio 3.3 Vitamin B12 Level 202 pg/mL (247-911) Thyroid Stimulating Hormone (TSH) 1.935 uIU/mL (0.358-3.74) Glucose (Fingerstick) 138 mg/dL (70-99) 176 mg/dL (70-99) Test 06/04/19 16:50 06/04/19 20:04 06/05/19 02:55 06/05/19 08:05 Glucose (Fingerstick) 141 mg/dL (70-99) 201 mg/dL (70-99) 158 mg/dL (70-99) Sodium Level 144 mmol/L (136-145) Potassium Level 4.6 mmol/L (3.5-5.1) Chloride Level 108 mmol/L (98-107) Carbon Dioxide Level 26 mmol/L (21-32) Anion Gap 10 (6-14) Blood Urea Nitrogen 24 mg/dL (8-26) Creatinine 1.1 mg/dL (0.7-1.3) Estimated GFR (Cockcroft-Gault) 63.8 Glucose Level 144 mg/dL (70-99) Calcium Level 8.8 mg/dL (8.5-10.1) Magnesium Level 1.8 mg/dL (1.8-2.4) Laboratory Tests Test 06/04/19 11:51 06/04/19 16:50 06/04/19 20:04 06/05/19 02:55 Glucose (Fingerstick) 176 mg/dL (70-99) 141 mg/dL (70-99) 201 mg/dL (70-99) Sodium Level 144 mmol/L (136-145) Potassium Level 4.6 mmol/L (3.5-5.1) Chloride Level 108 mmol/L (98-107) Carbon Dioxide Level 26 mmol/L (21-32) Anion Gap 10 (6-14) Blood Urea Nitrogen 24 mg/dL (8-26) Creatinine 1.1 mg/dL (0.7-1.3) Estimated GFR (Cockcroft-Gault) 63.8 Glucose Level 144 mg/dL (70-99) Calcium Level 8.8 mg/dL (8.5-10.1) Magnesium Level 1.8 mg/dL (1.8-2.4) Test 06/05/19 08:05 Glucose (Fingerstick) 158 mg/dL (70-99) Medications Current Medications Aspirin (Children'S Aspirin) 162 mg 1X ONCE PO Last administered on 06/03/19at 18:58; Start 06/03/19 at 19:00; Stop 06/03/19 at 19:01; Status DC Sodium Chloride 1,000 ml @ 1,000 mls/hr 1X ONCE IV Last administered on 06/03/19at 19:21; Start 06/03/19 at 19:15; Stop 06/03/19 at 20:14; Status DC Iohexol (Omnipaque 350 Mg/ml) 75 ml 1X ONCE IV Last administered on 06/03/19at 19:35; Start 06/03/19 at 19:30; Stop 06/03/19 at 19:31; Status DC Info (CONTRAST GIVEN -- Rx MONITORING) 1 each PRN DAILY PRN MC SEE COMMENTS; Start 06/03/19 at 19:30; Stop 06/05/19 at 19:29 Magnesium Sulfate 50 ml @ 25 mls/hr 1X ONCE IV Last administered on 06/03/19at 20:47; Start 06/03/19 at 20:45; Stop 06/03/19 at 22:44; Status DC Ceftriaxone Sodium (Rocephin) 1 gm 1X ONCE IVP Last administered on 06/03/19at 20:40; Start 06/03/19 at 20:45; Stop 06/03/19 at 20:46; Status DC Ondansetron HCl (Zofran) 4 mg PRN Q8HRS PRN IV NAUSEA/VOMITING; Start 06/03/19 at 20:30; Stop 06/04/19 at 20:29; Status DC Insulin Human Lispro (HumaLOG) 0-5 UNITS TIDWMEALS SQ ; Start 06/04/19 at 08:00; Stop 06/04/19 at 10:16; Status DC Dextrose (Dextrose 50%-Water Syringe) 12.5 gm PRN Q15MIN PRN IV SEE COMMENTS; Start 06/03/19 at 20:30 Magnesium Sulfate 50 ml @ 25 mls/hr 1X ONCE IV Last administered on 06/04/19at 11:51; Start 06/04/19 at 11:00; Stop 06/04/19 at 12:59; Status DC Clopidogrel Bisulfate (Plavix) 75 mg DAILYWBKFT PO Last administered on 06/05/19at 08:19; Start 06/04/19 at 11:00 Atorvastatin Calcium (Lipitor) 10 mg QHS PO Last administered on 06/04/19at 20:05; Start 06/04/19 at 21:00 Metoprolol Tartrate (Lopressor) 25 mg BID PO Last administered on 06/05/19at 08:20; Start 06/04/19 at 11:00 Nitroglycerin (Nitrostat) 0.4 mg PRN Q5MIN PRN SL CHEST PAIN; Start 06/04/19 at 10:15 Insulin Human Lispro (HumaLOG) 6 units TIDAC SQ Last administered on 06/05/19at 08:25; Start 06/04/19 at 11:30 Insulin Glargine (Lantus) 20 units QHS SQ Last administered on 06/04/19at 20:10; Start 06/04/19 at 21:00 Acetaminophen (Tylenol) 650 mg PRN Q6HRS PRN PO MILD PAIN / TEMP; Start 06/04/19 at 10:15 Magnesium Hydroxide (Milk Of Magnesia) 2,400 mg PRN DAILY PRN PO CONSTIPATION; Start 06/04/19 at 10:15 Amlodipine Besylate (Norvasc) 2.5 mg DAILY PO Last administered on 06/05/19at 08:22; Start 06/04/19 at 11:00 Allopurinol (Zyloprim) 300 mg DAILY PO Last administered on 06/05/19at 08:19; Start 06/04/19 at 11:00 Cyanocobalamin (Vitamin B-12) 1,000 mcg DAILY IM Last administered on 06/05/19at 08:25; Start 06/04/19 at 21:00 Active Scripts Active Sucralfate 1 Gm/10 Ml Oral.susp 1 Gm PO QIDACHS Pantoprazole Sodium 40 Mg Tablet.dr 40 Mg PO DAILYAC Levemir Flextouch (Insulin Detemir) 100 Unit/1 Ml Insuln.pen 18 Units SQ QHS Novolog Flexpen (Insulin Aspart) 100 Unit/1 Ml Insuln.pen 6 Units SQ TIDAC Hydrocodone-Apap 5-325 (Hydrocodone Bit/Acetaminophen) 1 Each Tablet 1 Tab PO PRN Q4HRS PRN Reported Metoprolol Tartrate 50 Mg Tablet 1 Tab PO BID Allopurinol 300 Mg Tablet 1 Tab PO DAILY Losartan Potassium 50 Mg Tablet 50 Mg PO DAILY Niaspan (Niacin) 1,000 Mg Tab.er.24h 1 Tab PO QHS Vitals/I & O Vital Sign - Last 24 Hours 7/30/06/04/19 06/04/19 06/04/19 11:45 11:50 11:50 15:48 Temp 98.1 97.6 98.1 97.6 Pulse 84 88 88 54 Resp 16 15 B/P (MAP) 138/89 (105) 138/89 138/89 118/64 (82) Pulse Ox 96 96 O2 Delivery Room Air Room Air 06/04/19 06/04/19 06/04/19 06/04/19 19:38 20:00 20:11 22:51 Temp 98.1 98.3 98.1 98.3 Pulse 61 61 54 Resp 16 16 B/P (MAP) 147/75 (99) 147/75 126/70 (88) Pulse Ox 96 95 O2 Delivery Room Air Room Air Room Air 06/05/19 06/05/19 06/05/19 06/05/19 02:55 07:46 08:00 08:20 Temp 97.7 97.5 97.7 97.5 Pulse 55 54 54 Resp 16 14 B/P (MAP) 117/60 (79) 143/68 (93) 143/68 Pulse Ox 97 96 O2 Delivery Room Air Room Air Room Air 06/05/19 08:22 Pulse 54 B/P (MAP) 143/68 Intake and Output 06/04/19 06/04/19 06/05/19 14:59 22:59 06:59 Intake Total 560 ml 200 ml 200 ml Balance 560 ml 200 ml 200 ml GUSTAVO HOLLOWAY MD Jun 05, 2019 10:14
[2019-06-05] MEDS ORDERED: METO25TA4 PO (10:24)
[2019-06-05] MEDS ORDERED: AMLO5TAB10 PO (10:24)
[2019-06-05] MEDS ORDERED: CLOP75TA PO (10:24)
[2019-06-05] MEDS ORDERED: INSU200I4 SQ (10:24)
[2019-06-05] MEDS ORDERED: ATOR10TA60 PO (10:24)
[2019-06-05] MEDS ORDERED: NITR0.4T SL (10:24)
--- NOTE | 2019-06-05 10:25 | DISCH ---
DISCHARGE INSTRUCTIONS Condition on Discharge Condition on Discharge: Stable Activity After Discharge Activity Instructions for Disc: Resume previous activity Weight Bearing Status after Di: As tolerated Diet after Discharge Diet after Discharge: Diabetic No Calorie Level Checks after Discharge Checks after discharge: Check blood sugar, ac/hs Contacting the DRBettie after DC Call your doctor for: If your condition worsens Follow-Up Follow up with: dr. holloway in office next week GUSTAVO HOLLOWAY MD Jun 05, 2019 10:24
--- NOTE | 2019-06-05 10:33 | PDOC ---
Provider Note Provider Note discharge summary dictated # [id number] GUSTAVO HOLLOWAY MD Jun 05, 2019 10:33
[2019-06-05] MEDS ORDERED: CYAN-25 PO (10:35)
[2019-06-05] MEDS ORDERED: CYANOCOBALAMIN (VITAMIN B-12) 1,000 MCG/ML VIAL IM ONE (10:45)
[2019-06-05 11:30] VITALS: BP 131/78
--- NOTE | 2019-06-05 13:55 | DS ---
DATE OF DISCHARGE: 06/05/2019 DATE OF ANTICIPATED DISMISSAL: 06/05/2019 [facility] [employer]UD[employer] PROGRAM CHAIR PHYSICIAN: Dr. Herrmann. FINAL DIAGNOSES: 1. Tiny acute right posterior dotson radiata cerebrovascular infarct. 2. Late subacute or early chronic right frontal cortical infarct. It is in the posterior right frontal cortical area. 3. Old lacunar infarcts involving the right occipital lobe as well as the bilateral basal ganglia and bilateral cerebellum, right frontal deep white matter, right centrum semiovale. 4. Diabetes mellitus type 2, on insulin. 5. Hypertension. 6. Hyperlipidemia. 7. Coronary artery disease. 8. Hypomagnesemia. HOSPITAL COURSE: The patient is an 84-year-old white male with a history of diabetes mellitus type 2 on insulin, hypertension, hyperlipidemia, coronary artery disease, chronic gout. He was talking to his tuaiyeg-eo-ayw and had difficulty speaking, slurring of speech. He noted some left-sided facial weakness and went to the Emergency Room. CAT scan of the head showed possible infarct involving the left internal capsule. However, an MRI of the brain showed that he had acute infarct involving the right dotson radiata. It also showed a late subacute and early chronic infarct involving the right frontal cortical surface. It showed old lacunar infarcts involving the bilateral basal ganglia and bilateral cerebellum and right frontal deep white matter, right centrum semiovale. The patient had a CAT scan angiogram of the head and neck, which showed no major vessel occlusion. He had some calcified plaque involving the right internal carotid artery about 30% stenosis and his basilar artery was supplied by the right vertebral artery and had mild stenosis. He had mild calcific plaque involving the cavernous segments of the internal carotid arteries bilaterally without significant stenosis. He had an echocardiogram, which showed preserved left ventricular ejection fraction, which was unremarkable. Chest x-ray showed no acute abnormality. EKG showed normal sinus rhythm with no acute abnormality. His aspirin was discontinued that he was taking at home 325 mg every day and was switch to Plavix 75 mg every day, seen by Dr. Herrmann for Neurology. He was seen by speech therapy and he passed a swallow study and he has not been seen by Physical and Occupational Therapy and he will be seen today and if it is okay with them, dismiss to home today with self-care and followup with Dr. Holloway next week. The stroke caused him left facial weakness, especially noted around the left mouth, just lateral to his lip. It also cause some fine motor movement deficits in his left hand. He has noted some problems there for the last month or so, so it is unclear what is new in all, but it did improve today versus yesterday in terms of the fine motor movements in that left hand. His dysarthria that he had on admission resolved. He was started on amlodipine 2.5 mg every day for his hypertension. His blood sugars were under good control. He had a lipid profile, his cholesterol was 114, triglycerides 138, HDL was 35, his LDL was 51. TSH was normal. His vitamin B12 level was low at 202, so he is going to have vitamin B12 deficiency and he was supposed to be on vitamin B12 of 1000 mcg p.o. daily. So, we will give him a B12 shot today and have him take a 1000 mcg of vitamin B12 daily and he will be dismissed to home later today if it is okay with the physical and occupational therapist. He was told to see Dr. Holloway in the office in 1 week and he will be dismissed on amlodipine 2.5 mg every day, atorvastatin 10 mg at bedtime, Plavix 75 mg every day and stop his aspirin, Tresiba just 20 units at bedtime, metoprolol tartrate 25 mg b.i.d., nitroglycerin 0.4 mg sublingual p.r.n., allopurinol 300 mg every day, NovoLog. He is actually on Novolin R 6 units before meals t.i.d. and vitamin B12 of 1000 mcg p.o. daily. GUSTAVO HOLLOWAY MD DR: BARRETT/masood JOB#: [id number] / [id number]
--- NOTE | 2019-06-05 14:29 | NUR ---
Discharge Note: VERONICA CONDE [address] [place] [address] Discharge instructions and discharge home medications reviewed with Patient and a copy given. All questions have been answered and understanding verbalized. The following instructions and handouts were given: FOLLOW UP INSTRUCTIONS, MEDICATION LISTS, AND ACTIVITY LEVELS. Discontinued lines and drains: Peripheral IV DISCONTINUED AND CATHETER intact. Patient discharged to Home or Self Care with Family Member via Wheelchair.
--- NOTE | 2019-06-05 16:02 | PDOC ---
PROGRESS NOTES Assessment Assessment Acte tiny acute infarct of the posterior right dotson radiata. Subacute or early chronic infarct in the posterior right frontal cortical surface. Old lacunar infarcts bilaterally. Old small infarct with cortical involvement of the right occipital lobe. Atherosclerotic disease in cerebral vasculature. The basilar artery is supplied solely by the right vertebral artery. Slurred speech for < 1 hour on 06/03/19. DM. HTN. HLD. Vit B12 deficiency/insufficiency. Over weight. RECOMMENDATIONS/PLAN: Plavix 75 mg daily. Continue Lipitor HS. Treat medical diseases. Vit B12 1 mg Im daily, changes to PO at discharge. Patient education for secondary stroke prevention. FU with PCP. FU with Neurology in [address], CTA, MRI, Echo: refer to official reports. HISTORY OF THE PRESENT ILLNESS: This is an 84-year-old male patient with above medical diseases developed symptoms of slurred speech on 06/03/19. His called his son who is a physician in other state suggest that he go to ER of local hospital, so he came to the ER of [facility]. His symptoms of slurred speech was resolved after arrival in the ER. He stated no numbness or weakness or other focalized neurological deficits. His NIH score was 0. His CTA showed no acute finding. He was not a candidate of TPA. He was admitted for further evaluation. He stated on 06/05/19 that he is doing fine. PAST MEDICAL HISTORY: Diabetes mellitus type 2, on insulin, hypertension, hyperlipidemia, coronary artery disease, chronic gout, myocardial infarction in 2004, benign prostatic hypertrophy. PAST SURGERY HISTORY: PTCA and stent placed in 2004, benign colon polypectomy. Stent to his obtuse marginal branch and he has had a cholecystectomy, tonsillectomy, cataract extraction, ventral abdominal hernia repair, left shoulder arthroplasty, in 1991, he had a perforated colon, following a colonoscopy and had a surgical repair. Melanoma excised from his neck in 2008, melanoma excised from his left forearm in 2016. SOCIAL HISTORY: He does not drink alcohol nor does he smoke cigarettes. He ambulates without any assistive device. He is . FAMILY HISTORY: Noncontributory. ALLERGY: NKDA MEDICATIONS: Refer to MAR REVIEW OF SYSTEMS: Constitutional: Over weight. Head: No traumatic brain or head injury. Skin: No edema, or rash. Ear: No infection. Eyes: No vision loss or color blindness. Nose: No bleeding or purulent discharges. Hearing: No hearing decrease. Neck: No injury. Cardiac: CAD, [place], HTN, HLD. Pulmonary: No COPD. GI: No GI ulcer, GI bleeding. Urinary/genital: BPH. Endocrinologic: Diabetes Mellitus, obesity. Skeletomuscular: No muscular atrophy, deformity. Neurological: see HP. Psychiatric: Denies drug use/abuse. Otherwise, not [id number] review of systems. PHYSICAL EXAMINATION: General appearance is in subacute distress. HEENT: Normocephalic and nontraumatic. Eyes, nose, ears, and throat are unremarkable. Neck is supple. No lymphadenopathy. No crepitus. Cardiovascular: S1, S2, regular rate and rhythm. Pulmonary: Clear to auscultation bilaterally. Abdomen: Bowel sounds are positive. Abdomen is soft, nontender, and nondis tended. Extremities: No rash, lesions, or edema. No restriction of range of motion NEUROLOGICAL EXAMINATION: Alert Oriented to time, place and person. PERRL. EOMI. CN: no focal findings. Muscle tone: within normal. Muscle strength: 5 DTR: 2 Plantar reflex: Flexor response bilaterally Gait: At his baseline normal. Sensory exam: no abnormal findings. No cerebellar signs elicited. F-T-N test fine. Objective Objective Vital Signs Date Time Temp Pulse Resp B/P (MAP) Pulse Ox O2 Delivery O2 Flow Rate FiO2 06/05/19 11:30 98.4 70 16 131/78 (95) 96 Room Air 98.4 Intake and Output 06/05/19 06:59 Intake Total 960 ml Balance 960 ml Intake Oral 960 ml # Voids 4 Vitals Signs Vitals VS - Last 72 Hours, by Label Date Time Temp Pulse Resp B/P (MAP) Pulse Ox O2 Delivery O2 Flow Rate FiO2 06/05/19 11:30 98.4 70 16 131/78 (95) 96 Room Air 98.4 06/05/19 08:22 54 143/68 06/05/19 08:20 54 143/68 06/05/19 08:00 Room Air 06/05/19 07:46 97.5 54 14 143/68 (93) 96 Room Air 97.5 06/05/19 02:55 97.7 55 16 117/60 (79) 97 Room Air 97.7 06/04/19 22:51 98.3 54 16 126/70 (88) 95 Room Air 98.3 06/04/19 20:11 61 147/75 06/04/19 20:00 Room Air 06/04/19 19:38 98.1 61 16 147/75 (99) 96 Room Air 98.1 06/04/19 15:48 97.6 54 15 118/64 (82) 96 Room Air 97.6 06/04/19 11:50 88 138/89 06/04/19 11:50 88 138/89 06/04/19 11:45 98.1 84 16 138/89 (105) 96 Room Air 98.1 06/04/19 08:00 Room Air 06/04/19 07:00 98.0 78 14 146/79 (101) 96 Room Air 98.0 Laboratory Laboratory Laboratory Tests Test 06/04/19 16:50 06/04/19 20:04 06/05/19 02:55 06/05/19 08:05 Glucose (Fingerstick) 141 mg/dL (70-99) 201 mg/dL (70-99) 158 mg/dL (70-99) Sodium Level 144 mmol/L (136-145) Potassium Level 4.6 mmol/L (3.5-5.1) Chloride Level 108 mmol/L (98-107) Carbon Dioxide Level 26 mmol/L (21-32) Anion Gap 10 (6-14) Blood Urea Nitrogen 24 mg/dL (8-26) Creatinine 1.1 mg/dL (0.7-1.3) Estimated GFR (Cockcroft-Gault) 63.8 Glucose Level 144 mg/dL (70-99) Calcium Level 8.8 mg/dL (8.5-10.1) Magnesium Level 1.8 mg/dL (1.8-2.4) Test 06/05/19 11:57 Glucose (Fingerstick) 211 mg/dL (70-99) Medication Medications Current Medications Atorvastatin Calcium (Lipitor) 10 mg QHS PO Last administered on 06/04/19at 20:05; Start 06/04/19 at 21:00; Stop 06/05/19 at 13:02; Status DC Cyanocobalamin (Vitamin B-12) 1,000 mcg 1X ONCE IM ; Start 06/05/19 at 10:45; Stop 06/05/19 at 10:45; Status DC Cyanocobalamin (Vitamin B-12) 1,000 mcg DAILY IM Last administered on 06/05/19at 08:25; Start 06/04/19 at 21:00; Stop 06/05/19 at 10:41; Status DC Cyanocobalamin (Vitamin B-12) 1,000 mcg DAILY PO ; Start 06/06/19 at 09:00; Stop 06/06/19 at 09:00; Status DC Insulin Glargine (Lantus) 20 units QHS SQ Last administered on 06/04/19at 20:10; Start 06/04/19 at 21:00; Stop 06/05/19 at 13:02; Status DC Comment Review of Relevant I have reviewed the following items landy (where applicable) has been applied. WILBERT DIOP MD Jun 05, 2019 16:02
[2019-06-06 01:12] LABS: HEMOGLOBIN A1C 7.2 % (4.8-5.6)
[2019-06-06] MEDS ORDERED: CYANOCOBALAMIN (VITAMIN B-12) 1,000 MCG TABLET. PO SCH (09:00)
== END 2019-06-05 12:53 | disposition home or self-care (01) | DRG 65 ==
LOC: ER 18:07 → 6 SOUTH 20:26
PROVIDERS: ADMIT Internal Medicine; ATTEND Internal Medicine
DX: I63.9 Cerebral infarction, unspecified (principal); N39.0 Urinary tract infection, site not specified; R29.810 Facial weakness; I65.21 Occlusion and stenosis of right carotid artery; I10 Essential (primary) hypertension; E83.42 Hypomagnesemia; E11.9 Type 2 diabetes mellitus without complications; E78.5 Hyperlipidemia, unspecified; I25.10 Atherosclerotic heart disease of native coronary artery without angina pectoris; M1A.9XX0 Chronic gout, unspecified, without tophus (tophi); I25.2 Old myocardial infarction; N40.0 Benign prostatic hyperplasia without lower urinary tract symptoms; Z96.612 Presence of left artificial shoulder joint; E66.3 Overweight; E53.8 Deficiency of other specified B group vitamins; Z85.820 Personal history of malignant melanoma of skin; Z79.4 Long term (current) use of insulin; Z95.5 Presence of coronary angioplasty implant and graft; Z79.02 Long term (current) use of antithrombotics/antiplatelets; Z90.49 Acquired absence of other specified parts of digestive tract; Z68.29 Body mass index [BMI] 29.0-29.9, adult; Z79.899 Other long term (current) drug therapy
CPT/HCPCS: 36415; 70450; 70496; 70498; 70551; 71045; 80048; 80053; 80061; 81001; 82553; 82607; 82962; 83036; 83605; 83735; 84443; 84484; 85025; 85610; 85730; 87086; 93005; 93306; 96374; J0696; J1815; J3420; J3475; J7030; Q9967; 99285-25

== ENCOUNTER → 2020-01-03 | Outpatient (CLI) | payer MEDICARE ==
[~2020-01-03] MED LIST changes: +AMLO5TAB10 PO; +ATOR10TA60 PO; +CYAN-25 PO; +INSU200I4 SQ; -MAGN2400 PO; +MAGN24003 PO; +METO25TA4 PO; +NITR0.4T24 SL; -SUCR1ORA11 PO; +SUCR1ORA14 PO
--- NOTE | 2020-01-03 10:22 | CARD ---
MR#: [id number] Date of Study: 01/03/2020 Ordering Physician: ALIA KEENE, Referring Physician: ALIA KEENE, Tech: Ben Kline [facility] APPROVED REPORT EXAM: Two-dimensional and M-mode echocardiogram with Doppler and color Doppler. Other Information Quality : AverageHR: 68bpm Rhythm : NSR INDICATION CAD 2D DIMENSIONS Left Atrium(2D)4.1 (1.6-4.0cm)IVSd1.4 (0.7-1.1cm) Aortic Root(2D)3.6 (2.0-3.7cm)LVDd4.1 (3.9-5.9cm) PWd1.4 (0.7-1.1cm)LVDs3.4 (2.5-4.0cm) FS (%) 19.0 %SV30.2 ml Aortic Valve AoV Peak Dino.136.6cm/Mireille Peak GR.7.5mmHg LVOT Peak Dino.125.4cm/Arsen P 1/2 Efol224ln Mitral Valve MV E Vquykxpa77.8cm/sMV DECEL PEFP133si MV A Gfjntptg26.7cm/sE/A Ratio0.5 MV A [id number] Pulmonary Valve PV Peak Ccunvqpa50.9cm/s Tricuspid Valve TR P. Hyoiwfnr784or/sRAP HRXZHAAV8zlXa TR Peak Gr.56qyTnVSEZ64wvNt Pulmonary Vein S1 Tvabsryn85.1cm/sD2 Gmuwtvih57.1cm/s PVa [id number] LEFT VENTRICLE The left ventricle is normal size. There is mild concentric left ventricular hypertrophy. The left ve ntricular systolic function is normal and the ejection fraction is within normal range. The Ejection Fraction is 55-60%. There is normal LV segmental wall motion. Transmitral Doppler flow pattern is Gra de I-abnormal relaxation pattern. RIGHT VENTRICLE The right ventricle is normal size. There is normal right ventricular wall thickness. The right ventr icular systolic function is normal. ATRIA The left atrium is borderline dilated. The right atrium size is normal. The interatrial septum is int act with no evidence for an atrial septal defect or patent foramen ovale as noted on 2-D or Doppler i arnie. AORTIC VALVE The aortic valve is mildly sclerotic. Doppler and Color Flow revealed mild aortic regurgitation. Ther e is no aortic valvular stenosis. There is no aortic valvular vegetation. MITRAL VALVE The mitral valve is normal in structure and function. There is no evidence of mitral valve prolapse. There is no mitral valve stenosis. There is no mitral valve regurgitation noted. TRICUSPID VALVE The tricuspid valve is normal in structure and function. Doppler and Color Flow revealed mild tricusp id regurgitation with PAP of 29 mmHg. There is no tricuspid valve prolapse or vegetation. There is no tricuspid valve stenosis. PULMONIC VALVE The pulmonary valve is normal in structure and function. There is no pulmonic valvular regurgitation. There is no pulmonic valvular stenosis. GREAT VESSELS The aortic root is normal in size. The aortic sinus of valsalva is dilated to 4.3 cm. The ascending a florencio is dilated to 4.1 cm. The pulmonary artery is normal. The IVC is normal in size and collapses >5 0% with inspiration. PERICARDIAL EFFUSION There is no pleural effusion. The pericardium appears normal. Critical Notification Critical Value: No <Conclusion> The left ventricle is normal size. The left ventricular systolic function is normal and the ejection fraction is within normal range. The Ejection Fraction is 55-60%. There is mild concentric left ventricular hypertrophy. Doppler and Color Flow revealed mild aortic regurgitation. There is no aortic valvular stenosis. There is no mitral valve regurgitation noted. Doppler and Color Flow revealed mild tricuspid regurgitation with PAP of 29 mmHg. The aortic root is normal in size. The aortic sinus of valsalva is dilated to 4.3 cm. The ascending aorta is dilated to 4.1 cm. Signed by : Alia Keene MD Electronically Approved : 01/03/2020 10:21:53
== END ==
LOC: ECHO 07:37
PROVIDERS: ATTEND Internal Medicine Cardiovascular Disease
DX: I08.2 Rheumatic disorders of both aortic and tricuspid valves (principal); I77.810 Thoracic aortic ectasia; I25.10 Atherosclerotic heart disease of native coronary artery without angina pectoris
CPT/HCPCS: 93306

== ENCOUNTER → 2021-01-19 | Outpatient (CLI) | payer MEDICARE ==
[~2021-01-19] MED LIST changes: +AMLO-186 PO; +AMLO-187 PO; -AMLO10TA8 PO; -AMLO5TAB10 PO
[2021-01-19 11:11] LABS: BASO # 0.1 x10^3/uL (0.0-0.2); BASO % 1 % (0-3); EOS # 0.1 x10^3/uL (0.0-0.7); EOS % 1 % (0-3); HEMATOCRIT 44.4 % (39.0-53.0); LYMPH # 0.9 x10^3/uL (1.0-4.8); LYMPH % 13 % (24-48); MEAN CORPUSCULAR HEMOGLOBIN 34 pg (25-35); MEAN CORPUSCULAR HGB CONC 34 g/dL (31-37); MEAN CORPUSCULAR VOLUME 100 fL (79-100); MONO # 0.7 x10^3/uL (0.0-1.1); MONO % 10 % (0-9); NEUT # 5.7 x10^3/uL (1.8-7.7); NEUT % 76 % (31-73); PLATELET COUNT 273 x10^3/uL (140-400); RED BLOOD COUNT 4.45 x10^6/uL (4.30-5.70); RED CELL DISTRIBUTION WIDTH 13.6 % (11.5-14.5); WHITE BLOOD COUNT 7.5 x10^3/uL (4.0-11.0)
[2021-01-19 11:30] LABS: CALCIUM 8.9 mg/dL (8.5-10.1); CREATININE 1.1 mg/dL (0.7-1.3); GFR 63.5; POTASSIUM 4.8 mmol/L (3.5-5.1)
[2021-01-19 11:36] LABS: ALBUMIN 3.1 g/dL (3.4-5.0); TOTAL BILIRUBIN 0.6 mg/dL (0.2-1.0); TOTAL PROTEIN 6.3 g/dL (6.4-8.2)
== END ==
LOC: ONCLAB 10:18
PROVIDERS: ATTEND Internal Medicine Hematology & Oncology
DX: Z12.5 Encounter for screening for malignant neoplasm of prostate (principal); R63.4 Abnormal weight loss; R97.0 Elevated carcinoembryonic antigen [CEA]; R97.8 Other abnormal tumor markers
CPT/HCPCS: 80053; 82378; 84443; 85025; 86301; G0103

== ENCOUNTER → 2021-02-11 | Outpatient (CLI) | payer MEDICARE ==
[2021-02-04 13:54] VITALS: BP 136/77
[~2021-02-11] MED LIST changes: +Dronabinol PO; +INSU100V35 SQ; +MIRT15TA3 PO; +MULT1TAB92 PO; +SERT-267 PO
[2021-02-11 09:04] LABS: BASO % 1 % (0-3); EOS # 0.1 x10^3/uL (0.0-0.7); EOS % 1 % (0-3); HEMATOCRIT 44.6 % (39.0-53.0); HEMOGLOBIN 15.1 g/dL (13.0-17.5); LYMPH # 1.4 x10^3/uL (1.0-4.8); LYMPH % 16 % (24-48); MEAN CORPUSCULAR HEMOGLOBIN 34 pg (25-35); MEAN CORPUSCULAR HGB CONC 34 g/dL (31-37); MEAN CORPUSCULAR VOLUME 100 fL (79-100); MONO # 0.8 x10^3/uL (0.0-1.1); MONO % 9 % (0-9); NEUT # 6.1 x10^3/uL (1.8-7.7); NEUT % 73 % (31-73); PLATELET COUNT 295 x10^3/uL (140-400); RED BLOOD COUNT 4.46 x10^6/uL (4.30-5.70); RED CELL DISTRIBUTION WIDTH 13.8 % (11.5-14.5); WHITE BLOOD COUNT 8.4 x10^3/uL (4.0-11.0)
[2021-02-11 09:29] LABS: ALBUMIN/GLOBULIN RATIO 0.9 (1.0-1.7); CALCIUM 8.7 mg/dL (8.5-10.1); CREATININE 1.1 mg/dL (0.7-1.3); GFR 63.5; TOTAL BILIRUBIN 0.6 mg/dL (0.2-1.0); TOTAL PROTEIN 6.2 g/dL (6.4-8.2)
== END ==
LOC: ONCLAB 08:17
PROVIDERS: ATTEND Internal Medicine Hematology & Oncology
DX: R63.4 Abnormal weight loss (principal); Z79.899 Other long term (current) drug therapy; C78.80 Secondary malignant neoplasm of unspecified digestive organ
CPT/HCPCS: 36415; 80053; 85025; 86301

== ENCOUNTER → 2021-02-23 | Outpatient (CLI) | payer MEDICARE ==
[2021-02-04 13:54] VITALS: BP 136/77
[~2021-02-23] MED LIST changes: +CONTRAST GIVEN. MC PRN; -Dronabinol PO; +IOHEXOL 300 MG/ML 100ML VIAL. IV ONE; -MIRT15TA3 PO
--- NOTE | 2021-02-23 15:46 | RAD ---
EXAM: Abdomen CT with intravenous contrast. HISTORY: Excessive weight loss. TECHNIQUE: Computed tomographic images of the abdomen were obtained following the administration of i ntravenous contrast. Multiplanar reformatting was performed. *One or more of the following individualized dose reduction techniques were utilized for this examina tion: 1. Automated exposure control. 2. Adjustment of the mA and/or kV according to patient size. 3. Use of iterative reconstruction technique. COMPARISON: None. FINDINGS: Evaluation of the lower thorax demonstrates mild cardiomegaly. There is calcified atheroscl erotic plaque involving the coronary arteries. There is calcification of the aortic valve and mitral valve annulus. There is a prominent aortic arch measuring 3.9 cm in caliber. There is posterior depen dent and basilar atelectasis. There is a 4 mm nodule within the right frontal lobe. No suspicious hepatic lesion is seen. The gallbladder is surgically absent. There is common bile duct dilatation likely due to reservoir effect status post cholecystectomy. There are several nonspecific prominent periportal lymph nodes. No convincing pancreatic lesion is seen. 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 Is unremarkable. There is a tiny proximal duodenal diverticulum. The adrenal glands are unremarkable. There are tiny bilateral renal cortical cysts and there is bilat eral renal cortical scarring. No hydronephrosis or suspicious renal lesion is seen. There is partial visualization of a suspected small fat-containing supraumbilical hernia. There is aortic and aortic b ranch vessel atherosclerosis. There is degenerative change throughout the visualized spine. There is distal colonic diverticulosis. IMPRESSION: 1. No evidence of pancreatitis or pancreatic neoplasm. There is calcification along the pancreatic ta il likely due to a peripherally calcified splenic artery aneurysm. 2. Prominent periportal lymph nodes, likely reactive in etiology. 3. Colonic diverticulosis. 4. Simple appearing bilateral renal cysts. Follow-up is not routinely performed for simple cysts. 5. Cardiomegaly and calcified atherosclerotic plaque involving the coronary arteries. There is also c alcification of the aortic valve and a prominent ascending aorta measuring 3.9 cm in caliber. 6. 4 mm right middle lobe pulmonary nodule. Follow-up can be performed in one year if deemed clinical ly indicated in this 86-year-old patient. Electronically signed by: Kecia Leon MD (02/23/2021 3:44 PM) [id number]
== END ==
LOC: CT 12:37
PROVIDERS: ATTEND Internal Medicine Hematology & Oncology
DX: K57.30 Diverticulosis of large intestine without perforation or abscess without bleeding (principal); R91.1 Solitary pulmonary nodule; R63.4 Abnormal weight loss; N28.1 Cyst of kidney, acquired; I70.0 Atherosclerosis of aorta
CPT/HCPCS: 74160; Q9967